=== PATIENT | female | born 1945 | race Two or more races ===

== ENCOUNTER 2024-01-14 17:08 | Emergency (ER) | payer MEDICARE, MEDICAID, SELFPAY ==
[2024-01-14] VITALS (7 sets, daily range): BP systolic 113–163; BP diastolic 63–97; PULSE 83–135; RESP 15–31; TEMP 37.4–38.4; O2SAT 92–98; BMI 23.0
--- NOTE | 2024-01-14 17:41 | EKG_ITS ---
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: : 1945 Requested By: Hannah Hickey ([facility]) [place] Order Number: [id number] Reading MD: Hannah Hickey ([facility]) Taylor Measurements Intervals [place] Rate: 136 P: 71 WI: 126 QRS: -86 QRSD: 83 T: 86 QT: 302 QTc: 455 Interpretive Statements SINUS TACHYCARDIA PATTERN CONSISTENT WITH PULMONARY DISEASE LEFT ANTERIOR FASCICULAR BLOCK [QRS AXIS <= -45, QR IN I, RS IN II] Compared to ECG 06/21/2023 15:59:25 Sinus rhythm no longer present Indeterminate axis no longer present Myocardial infarct finding no longer present /store/S0/[id number]/ecg/[id number].pdf
--- NOTE | 2024-01-14 17:41 | PD.EDRME ---
Rapid Medical Screening Exam RME Arrival date/time: 01/14/24 17:74 78-year-old female Chronically ill patient here accompanied with son for complaints of worsening buttocks wound. History of CVA patient is currently bedridden. I have greeted and performed a focused initial assessment of this patient. Initial appropriate labs ordered at this time. A comprehensive ED assessment and evaluation of the patient and analysis of all test and completion of medical decision making process will be conducted by additional ED provider. Chief Complaint: Back Pain/Injury Time Seen by Provider: 01/14/24 17:41 Vital signs: Vital Signs Temperature 99.4 F 01/14/24 17:41 Pulse Rate 135 H 01/14/24 17:41 Respiratory Rate 19 01/14/24 17:41 Blood Pressure 163/97 H 01/14/24 17:41 Pulse Oximetry (%) 98 01/14/24 17:41 Oxygen Delivery Method Room Air 01/14/24 17:41
[2024-01-14 18:12] LABS: Lactate (Lactic Acid) 2.1 mMol/L (0.4-2.0)
[2024-01-14 18:32] LABS: Basophils # (Auto) 0.1 Thou/mm3 (0.0-0.2); Basophils % (Auto) 0 % (0-2.5); Eosinophils # (Auto) 0.1 Thou/mm3 (0.0-0.5); Eosinophils % (Auto) 0 % (0-10); Hematocrit 39.6 % (36.0-46.0); Hemoglobin 12.9 g/dL (12.0-16.0); Immature Granulocytes % (Auto) 0 % (0-0); Immature Granulocytes Auto 0.06 Thou/mm3 (0.00-0.00); Lymphocytes # (Auto) 1.7 Thou/mm3 (1.0-4.8); Lymphocytes % (Auto) 11 % (10-50); Mean Corpuscular HGB Conc 32.6 g/dl (31.0-37.0); Mean Corpuscular Volume 86 fL (80-100); Monocytes # (Auto) 1.3 Thou/mm3 (0.0-0.8); Monocytes % (Auto) 8 % (0-12); Neutrophils # (Auto) 13.2 Thou/mm3 (1.8-7.7); Neutrophils % (Auto) 81 % (37-80); Nucleated Red Blood Cell % 0 /100 WBC (0); Platelet Count 329 Thou/mm3 (140-440); RDW Standard Deviation 48.8 fL (36.4-46.3); White Blood Count 16.4 Thou/mm3 (3.6-11.0)
[2024-01-14 18:34] LABS: INR 1.1 (0.9-1.3); Partial Thromboplastin Time 31.1 Seconds (22.0-36.0); Prothrombin Time 11.7 Seconds (9.0-12.2)
[2024-01-14 18:47] LABS: Alanine Aminotransferase 12 U/L (10-49); Albumin, Serum 4.2 gm/dL (3.4-4.8); Albumin/Globulin Ratio 1.1 (1.2-2.2); Alkaline Phosphatase 147 U/L (46-116); Anion Gap 8 (7-16); Aspartate Amino Transferase 19 U/L (0-34); BUN/Creatinine Ratio 25 Ratio (12-20); Bilirubin,Total 1.1 mg/dL (0.3-1.2); Blood Urea Nitrogen 15 mg/dL (9-23); Calcium 9.7 mg/dL (8.3-10.6); Calcium (Corrected) 9.7 mg/dL (8.5-10.1); Carbon Dioxide 24.7 mMol/L (20.0-31.0); Chloride 101 mMol/L (98-107); Creatinine (Component) 0.6 mg/dL (0.6-1.3); Glucose 138 mg/dL (74-106); Osmolality,Calculated 271 (275-295); Potassium 3.4 mMol/L (3.4-5.1); Procalcitonin 0.16 ng/ml (0.0-0.49); Sodium 134 mMol/L (136-145); Total Protein 8.2 gm/dL (5.7-8.2); Troponin I < 0.020 ng/mL (0.0-0.045); eGFR > 60 See Note
[2024-01-14 21:08] LABS: Reflex Lactate? Y
--- NOTE | 2024-01-14 21:21 | EDNOTE_ITS ---
ED Back Injury Pain RME/HPI General Chief Complaint: Back Pain/Injury Stated Complaint: Bed sore, pt is bed bound x 3 days Time Seen by Provider: 01/14/24 17:41 Source: patient and family Arrival date/time: 01/14/24 17:08 Mode of arrival: ambulatory Limitations: no limitations RME / HPI RME / HPI Narrative: 01/14/24 17:74 78-year-old female Chronically ill patient here accompanied with son for complaints of worsening buttocks wound. History of CVA patient is currently bedridden. I have greeted and performed a focused initial assessment of this patient. Ini tial appropriate labs ordered at this time. A comprehensive ED assessment and evaluation of the patient and analysis of all test and completion of medical decision making process will be conducted by additional ED provider. --- DR. YAO MAIN ED EVALUATION: 78-year-old female who presents to the emergency department for a chief complaint of worsening wounds to her buttocks. Patient's son states the patient has been developing worsening bed sores for the last few days. Patient is bedridden. He denies any fever, chills, vomiting or any other associated symptoms. No known allergies. PMHx includes rheumatoid arthritis with significant right upper extremity deformity, essential hypertension, unclear compliance with medications, hyperlipidemia, and depression. Social history includes active smoker with more than 48-kdkn-erog smoking. Related Data Home Medications ?Medication ?Instructions ?Recorded ?Confirmed venlafaxine 75 mg capsule,extended 75 mg PO DAILY 06/23/23 06/23/23 release 24 hr Allergies Allergy/AdvReac Type Severity Reaction Status Date / Time No Known Allergies Allergy Verified 06/21/23 16:17 Review of Systems Review of Systems Systems Reviewed: All systems reviewed, normal except as documented Past Medical History Past Medical History CARDIAC: Positive Hypercholesterolemia and Hypertension; Negative Congestive Heart Failure RESPIRATORY: Negative Chronic Obstructive Pulmonary Disease (COPD) GENITOURINARY: Negative Renal Disease MUSCULOSKELETAL: Positive Rheumatoid Arthritis ENDOCRINE: Negative Diabetes Mellitus Type 1 or Diabetes Mellitus Type 2 PSYCHO/SOCIAL: Positive Depression Family History FAMILY HISTORY: Positive Family Cardiac Disorders Social History SMOKING STATUS: Former smoker SUBSTANCE USE: does not use ED Exam Narrative Physical exam: Patient appears cachectic General Limitations: Present no limitations General appearance: Present alert Head Head exam: Present atraumatic, normocephalic and normal inspection Eye Eye exam: Present normal appearance and EOMI; Absent scleral icterus ENT ENT exam: Present normal exam and normal oropharynx Neck Neck exam: Present normal inspection and full ROM Chest Chest inspection: Present normal inspection and symmetric chest wall rise Respiratory Respiratory exam: Present normal lung sounds bilaterally Cardiovascular Cardiovascular exam: Present regular rate, normal rhythm, normal heart sounds and systolic murmur (3/6 blowing murmur) Abdominal Exam Abdominal exam: Present normal bowel sounds Extremities Exam Extremities exam: Present other (decreased capillary refill and skin turgor; RLE and right hand/wrist are contracted) Back Exam Back exam: Present normal inspection and full ROM Neurological Exam Neurological exam: Present alert, oriented X3 and CN II-XII intact Psychiatric Psychiatric exam: Present normal affect and normal mood; Absent depressed Skin Skin exam: Present warm, dry, normal color and other (10x4 cm open wound on the coccyx, no crepitus or redness, nontender) Course Course Course Narrative: IV fluids are given. Son request to see long term care social worker to discuss wound care consult for Coccyx open wound. 0600: Care signed out to the next oncoming provider. Past medical, surgical, social and family history reviewed. Vitals and home medications reviewed. Results and treatment plan discussed. They will assume the care of the patient at this time and will follow the patient, pending long term care social worker consultation for wound care.. Quality Measures none Orders Category Date Time Status EKG (ED ONLY) *Do not use* NOW Care 01/14/24 17:41 Completed EKG (ED Only) Stat Exams 01/14/24 17:41 Draft Blood Culture (Lab) Stat Lab 01/14/24 18:04 Received CBC Stat Lab 01/14/24 18:02 Completed Comprehensive Metabolic Panel Stat Lab 01/14/24 18:02 Completed Lactate (Lactic Acid) Stat Lab 01/14/24 18:02 Completed Lactic Acid, 3 HR Stat Lab 01/14/24 21:41 Completed Magnesium Stat Lab 01/14/24 18:02 Completed Partial Thromboplastin Time Stat Lab 01/14/24 18:02 Completed Procalcitonin Stat Lab 01/14/24 18:02 Completed Prothrombin Time with INR Stat Lab 01/14/24 18:02 Completed Troponin I Stat Lab 01/14/24 18:02 Completed Vital Signs Vital signs: Vital Signs Temperature 99.4 F 11/14/24 17:41 Pulse Rate 135 H 01/14/24 17:41 Respiratory Rate 19 01/14/24 17:41 Blood Pressure 163/97 H 01/14/24 17:41 Pulse Oximetry (%) 98 01/14/24 17:41 Oxygen Delivery Method Room Air 01/14/24 17:41 Back Pain / Injury MDM Narrative MDM Narrative:: ? Scribe Attestation: I, Ludivina Scherer, am scribing for and in the presence of Dr. Cain. Provider Notation: Although this document has been carefully reviewed, there may still be some phonetic and other typographical errors. These errors are purely grammatical due to imperfections in the software program and should not be construed in any way to compromise the substance of the patient's medical care during this visit. Patient data External records reviewed:: [facility] previous records Clinical information provided by:: family Social determinants that could affect healthcare access:: none Patient has the following chronic illnesses:: rheumatoid arthritis with significant right upper extremity deformity and walks with help of walker, essential hypertension, unclear compliance with medications, hyperlipidemia, depression, active smoker with more than 75-[id number]-qzjp smoking How is presenting disease/condition affected by chronic disease/condition?: uneffected by Evaluation data The following diagnostics were reviewed and interpreted by me:: lab results and EKG tracing(s) Lab and/or radiology exams considered but not ordered:: None Interpretation Summary: WBC count is elevated at 16.4, Lactic Acid is slightly elevated at 2.1, Procalcitonin is normal, troponin is normal, according to my interpretation. EKG done at 1754, sinus tachycardia, rate of 136, left inferior fascicular bloc k, QTc: 382, no STEMI, according to my interpretation. Medications / Prescriptions Medications or Prescriptions considered but not ordered:: None Medication administrations:: As above, if any Consultations Consultation(s) initiated? (list below): No Diagnosis Differential diagnosis back pain/injury: other (cellulitis, osteomyelitis, electrolyte abnormality, dehydration) Most likely diagnosis given after review of the tests above:: see below Admission Indicated Admission indicated?: not indicated Admission Request Was there a request for admission?: No Disposition Plan Disposition Plan: other (specify) (Signed out to the next oncoming provider at 0600 pending long term care social worker consultation for wound referral.) Discharge Plan Plan Patient Disposition: HOME (Self Care) Patient condition on transfer: Stable Prescriptions/Referrals Prescriptions/Med Rec: No Action venlafaxine 75 mg capsule,extended release 24hr 75 mg PO DAILY Referrals: No Primary/Family,Physician [Primary Care Provider] - In 1 week Problem List Clinical Impression: [place], Acute dehydration Patient/Caregiver Discharge Instructions Education Materials: Wound Care, What Are Pressure Sores?, ED Dehydration (Adult) Print Language: Ethiopian Stand Alone Forms: Jo Award Info., Patient Portal Info Letter
[2024-01-14 21:53] LABS: Lactic Acid, 3 HR 1.6 mMol/L (0.4-2.0)
[2024-01-15] VITALS: BP 144/72; PULSE 93; RESP 26; O2SAT 97
[2024-01-15 06:00] VITALS: BP 113/64; PULSE 76; RESP 17; TEMP 37.2; O2SAT 97
--- NOTE | 2024-01-15 07:03 | PC.CC ---
Heather WILL was consulted for referral to the wound clinic. ASW faxed referral, will be calling at [phone] to schedule appointment for the patient.
--- NOTE | 2024-01-15 07:21 | PC.CC ---
ASW, spoke to patient's son Neel who reports he wants a referral for [facility] for wound care. ASW will be submitting referral for home health.
[2024-01-15 07:52] VITALS: BP 113/64; PULSE 92; RESP 17; TEMP 37.3; O2SAT 97
--- NOTE | 2024-01-15 08:00 | PC.NURSE ---
pt seen and is resting . Pt has no movement ti right arm or leg. Per Pt's son, at bedside, pt does n ot move or attempt to feed or care for herself, she is total care at home.
--- NOTE | 2024-01-15 08:06 | PC.CC ---
ASW, informed Dr. Vaughan that Home Health Services has been established. ASW, spoke to patient's son Bridger Dewitt and provided home health company [facility] information. ASW to remain available.
--- NOTE | 2024-01-15 08:07 | PD.EDADDENDU ---
Emergency Room Addendum Addendum Narrative: The patient was signed out to me from Dr. 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 She told me that after the home health care referral success, the patient can be DC home with her family. 8 AM, I was told by the hospital social media specialist that the patient has been accepted for home health care and the patient can be discharged to family. Diagnosis: Decubitus ulcer, home health care referral Condition: Stable for DC home DC instruction: Home health care referral has been done. Please also follow-up with your medical doctor in the next couple days. Return to the nearest ER if any problem.
[2024-01-15 08:45] VITALS: BP 119/64; PULSE 93; RESP 20; TEMP 37.1; O2SAT 96
[2024-01-15 08:59] VITALS: BP 113/64; PULSE 89; RESP 18; O2SAT 95
== END 2024-01-15 08:59 | disposition home or self-care (01) ==
PROVIDERS: Nurse Practitioner Primary Care; Emergency Provider Emergency Medicine; PCP Nurse Practitioner
DX: L89.159 Pressure ulcer of sacral region, unspecified stage (principal); E86.0 Dehydration; R00.0 Tachycardia, unspecified; I44.4 Left anterior fascicular block; E78.00 Pure hypercholesterolemia, unspecified; I10 Essential (primary) hypertension; Z87.891 Personal history of nicotine dependence
CPT/HCPCS: 36415; 80053; 83605; 83735; 84145; 84484; 85025; 85610; 85730; 87040; 87077; 87186; 93005; 99283

== ENCOUNTER → 2024-03-01 | Outpatient (CLI) | payer MEDICARE, MEDICAID, SELFPAY ==
[2024-03-01 13:56] LABS: Collection Type, Urine Clean Catch
[2024-03-01 14:55] LABS: Bacteria,Urine 2+; Bilirubin,Urine Negative (Negative); Blood,Urine 3+ (Negative); Calcium Oxalate Crystals,Urine 3+; Color,Urine Yellow (Lt Yel-Yel); Glucose, Urine Negative (Negative); Ketones,Urine Negative (Negative); Leukocyte Esterase,Urine Positive (Negative); Nitrite,Urine Positive (Negative); PH,Urine 6.5 (5.0-7.0); Protein,Urine 2+ (Neg - Trace); RBC,Urine 238 /hpf (0-3); Specific Gravity,Urine 1.022 (1.001-1.035); Squamous Epithelial Cell,Urine 1 /hpf (0-5); Urobilinogen,Urine Negative mg/dL (0.0-1.0); WBC,Urine 1664 /hpf (0-5)
[2024-03-01 15:00] LABS: Clarity,Urine Hazy (Clear/Hazy); Culture Indicated,Urine Yes
== END | disposition home or self-care (01) ==
PROVIDERS: PCP Family Medicine; Referring Provider Nurse Practitioner; Visit Provider Nurse Practitioner
DX: R30.0 Dysuria (principal)
CPT/HCPCS: 81001; 87077; 87086; 87186

== ENCOUNTER → 2024-03-23 | Outpatient (CLI) | payer MEDICARE, MEDICAID, SELFPAY ==
[2024-03-23 14:13] LABS: Collection Type, Urine Clean Catch
[2024-03-23 15:42] LABS: Bilirubin,Urine Negative (Negative); Blood,Urine Negative (Negative); Budding Yeast,Urine Present; Clarity,Urine Turbid (Clear/Hazy); Color,Urine Yellow (Lt Yel-Yel); Glucose, Urine Negative (Negative); Ketones,Urine Negative (Negative); Leukocyte Esterase,Urine Positive (Negative); Nitrite,Urine Negative (Negative); Protein,Urine Trace (Neg - Trace); RBC,Urine 27 /hpf (0-3); Specific Gravity,Urine 1.023 (1.001-1.035); Squamous Epithelial Cell,Urine 1 /hpf (0-5); WBC,Urine 51 /hpf (0-5)
[2024-03-23 15:43] LABS: Culture Indicated,Urine Yes
== END | disposition home or self-care (01) ==
PROVIDERS: Referring Provider Nurse Practitioner; Visit Provider Nurse Practitioner
DX: N30.01 Acute cystitis with hematuria (principal)
CPT/HCPCS: 81001; 87086; 87106

== ENCOUNTER → 2024-04-29 | Outpatient (CLI) | payer MEDICARE, MEDICAID, SELFPAY ==
[2024-04-29 10:08] LABS: Basophils # (Auto) 0.1 Thou/mm3 (0.0-0.2); Basophils % (Auto) 1 % (0-2.5); Eosinophils # (Auto) 0.1 Thou/mm3 (0.0-0.5); Eosinophils % (Auto) 2 % (0-10); Hematocrit 33.3 % (36.0-46.0); Hemoglobin 10.3 g/dL (12.0-16.0); Immature Granulocytes % (Auto) 0 % (0-0); Immature Granulocytes Auto 0.01 Thou/mm3 (0.00-0.00); Lymphocytes # (Auto) 1.3 Thou/mm3 (1.0-4.8); Lymphocytes % (Auto) 23 % (10-50); Mean Corpuscular HGB Conc 30.9 g/dl (31.0-37.0); Mean Corpuscular Hemoglobin 24.6 pg (25.0-35.0); Mean Corpuscular Volume 80 fL (80-100); Monocytes # (Auto) 0.5 Thou/mm3 (0.0-0.8); Monocytes % (Auto) 10 % (0-12); Neutrophils # (Auto) 3.6 Thou/mm3 (1.8-7.7); Neutrophils % (Auto) 64 % (37-80); Nucleated Red Blood Cell % 0 /100 WBC (0); Platelet Count 235 Thou/mm3 (140-440); Red Blood Count 4.18 Miln/mm3 (4.00-5.20); White Blood Count 5.5 Thou/mm3 (3.6-11.0)
[2024-04-29 10:34] LABS: Alanine Aminotransferase 24 U/L (10-49); Albumin, Serum 3.3 gm/dL (3.4-4.8); Alkaline Phosphatase 134 U/L (46-116); Anion Gap 9 (7-16); Aspartate Amino Transferase 32 U/L (0-34); BUN/Creatinine Ratio 50 Ratio (12-20); Bilirubin,Total 0.5 mg/dL (0.3-1.2); Blood Urea Nitrogen 15 mg/dL (9-23); Calcium 9.1 mg/dL (8.3-10.6); Calcium (Corrected) 9.7 mg/dL (8.5-10.1); Carbon Dioxide 25.8 mMol/L (20.0-31.0); Cardiac Risk Estimate 2.7 RATIO (3.7-5.6); Chloride 107 mMol/L (98-107); Cholesterol 93 mg/dL (132-200); Creatinine (Component) 0.3 mg/dL (0.6-1.3); Globulin 3.3 gm/dL (2.3-3.5); Glucose 95 mg/dL (74-106); HDL Cholesterol 35 mg/dL (40-60); LDL Cholesterol,Calculated 45 mg/dL (0-130); Osmolality,Calculated 283 (275-295); Potassium 4.3 mMol/L (3.4-5.1); Sodium 142 mMol/L (136-145); Total Protein 6.6 gm/dL (5.7-8.2); Triglycerides 67 mg/dL (30-150); eGFR > 60 See Note
== END | disposition home or self-care (01) ==
LOC: SLDO 09:48
PROVIDERS: Referring Provider Family Medicine; Visit Provider Family Medicine
DX: N30.01 Acute cystitis with hematuria (principal); I10 Essential (primary) hypertension; E78.5 Hyperlipidemia, unspecified
CPT/HCPCS: 36415; 80053; 80061; 85025; 87077; 87086; 87186

== ENCOUNTER → 2024-06-24 | Outpatient (CLI) | payer MEDICARE, MEDICAID, SELFPAY | END | disposition home or self-care (01) | LOC: SLDO 15:13 | PROVIDERS: PCP Nurse Practitioner; Referring Provider Nurse Practitioner; Visit Provider Nurse Practitioner | DX: N30.01 Acute cystitis with hematuria (principal) | CPT/HCPCS: 87077; 87086; 87186 ==

== ENCOUNTER 2024-07-20 11:33 | Inpatient (IN) | payer MEDICARE, MEDICAID, SELFPAY ==
--- NOTE | 2024-07-20 | XR_ITS ---
Examinations: MRI Brain without intravenous contrast. MRA brain without intravenous contrast. MRA carotids without intravenous contrast 3-D vascular reconstructions Date and time of exam: July 20, 2024 1758 hours INDICATIONS: Stroke alert today, onset left-sided facial droop Technique: Multiple axial and sagittal images of the brain have been obtained MRA brain carotid images without contrast obtained, including 3-D postprocessing, vascular maximum intensity projection images Findings: The entire study is severely degraded by patient motion Ventricles are mildly enlarged Possible small foci of restricted diffusion in the left cerebellar hemisphere diffusion image 5 Extensive white matter change in the left occipital lobe and in general periventricular and in the white matter IMPRESSION: The entire study is severely degraded by patient motion Recommend repeating the study when the patient can cooperate to exclude acute infarcts especially in the left cerebellar hemisphere
--- NOTE | 2024-07-20 11:35 | EDNOTE_ITS ---
ED General RME/HPI General Chief complaint: Neuro Symptoms/Deficit Stated complaint: STROKE Time Seen by Provider: 07/20/24 11:38 Arrival date/time: 07/20/24 11:33 RME / HPI RME / HPI narrative: DR. LINK MAIN ED EVALUATION: 78 year old female with past medical history significant for CVA in 01/2024 presents to the Emergency Department [facility] from home with complaint of new onset of left sided facial droop 2 hours ago. Last well known time is 9 AM today. Family reported to EMS that patient usually responds and answers questions and today she was not. Related Data Home Medications ?Medication ?Instructions ?Recorded ?Confirmed venlafaxine 75 mg capsule,extended 75 mg PO DAILY 06/0106/23/23 release 24 hr Allergies Allergy/AdvReac Type Severity Reaction Status Date / Time No Known Allergies Allergy Verified 06/21/23 16:17 Review of Systems Review of Systems ROS Unobtainable: unobtainable due to mental status Past Medical History Past Medical History CARDIAC: Positive Hypercholesterolemia and Hypertension MUSCULOSKELETAL: Positive Rheumatoid Arthritis PSYCHO/SOCIAL: Positive Depression Family History FAMILY HISTORY: Positive Family Cardiac Disorders Social History SMOKING STATUS: Former smoker SUBSTANCE USE: does not use ALCOHOL: Never ED Exam Narrative Physical exam: The patient arrived and seen in the ambulance bay and a stroke alert was called soon after arrival due to new onset of and decreased verbal ability. Patient is somewhat contracted smells of tobacco and unable to answer questions or engage. Physical Exam: General: The vital signs were reviewed. Patient has contractures the patient is no n-toxic, in no apparent distress and appears healthy with a patent airway, no respiratory distress and has no apparent circulatory problems. Head & Scalp: Normocephalic, atraumatic. Face: Left facial droop appears normal and is without lesions, deformity. Ears: Left external pinna appears normal. Right external pinna appears normal. Eyes: The sclera is anicteric. No obvious photophobia. The Left and Right Orbit/Lid/Conjunctiva appears normal without swelling, discoloration or injection. Nose: The nose is without deformity, discharge or tenderness; Throat: Appears normal. The mucous membranes are pink and moist without exudates, redness or mass seen. The tongue appears normal. Neck: The neck is supple and no apparent mass or adenopathy. Chest: The chest wall is normal in size and symmetry and has no chest wall tenderness or crepitus. The patient displays normal ventilator effort without retractions, accessory muscle use and has adequate air movement bilaterally with no wheezes and no rales. Cardiovascular: Regular rate and rhythm; No murmurs, rubs, or gallops; Gastrointestinal: The abdomen appears normal. No obvious hernias or mass. The abdomen is soft and benign, non-distended, with no pain, no guarding and no rebound tenderness. Bowel sounds are present and normal sounding. No CVA tenderness. Genitourinary: Back/Spine: Normal inspection Extremities/Musculoskeletal/lymphatic: The contracted extremities not able to follow commands unable to determine if there is any focal extremity weakness Skin: The skin is warm, dry and intact. No rashes. No petechia. No purpura. No abnormal bruising. The color is appropriate with no cyanosis. Mental status/Psychiatric: Mental status is evidently not as engaging as baseline. Neurological: The patient is awake, alert, interactive, gives eye contact not verbal left face is drooping. The patient follows commands and answers historical question with no impairment. There is no visual disturbance apparent. The pupils are equal and reactive bilaterally with normal eye movements and no diplopia The bilateral upper and lower extremities are contracted and unable to display range of motion testing. The gait, station and balance are not tested due to acuity. Course Quality Measures none Orders Category Date Time Status Admit to Inpatient Status Routine Admission 07/20/24 17:27 Active Patient Condition Routine Admission 07/20/24 17:27 Ordered Bedside Blood Glucose NOW Care 07/20/24 11:38 Active Bedside COVID-19 Antigen Test NOW Care 07/20/24 17:28 Active On Site Soil Evaluator NOW Care 07/20/24 11:38 Active Continuous Pulse Oximetry NOW Care 07/20/24 11:38 Completed EKG (ED ONLY) *Do not use* NOW Care 07/20/24 11:38 Completed In and Out Catheter NEEDED Care 07/20/24 11:38 Active Insert IV NOW Care 07/20/24 11:38 Active MRI Screening NOW Care 07/20/24 15:21 Active NIH Stroke Scale now Care 07/20/24 11:38 Active NPO NOW Care 07/20/24 11:38 Active Neuro Check Q15MIN Care 07/20/24 11:38 Active Notify provider NEEDED Care 07/20/24 17:27 Active Nurse Swallow Screen x1 Care 07/20/24 11:[address] angio stroke protocol Stat Exams 07/20/24 11:[address] stroke protocol Stat Exams 07/20/24 11:38 Completed EKG (ED Only) Stat Exams 07/20/24 11:38 Draft MR head/brain wo con Stat Exams 07/20/24 Ordered XR chest 1V portable Stat Exams 07/20/24 11:38 Completed B-Type Natriuretic Peptide Stat Lab 07/20/24 11:36 Completed Blood Culture (Lab) Stat Lab 07/20/24 12:54 Received CBC Stat Lab 07/20/24 11:36 Completed Comprehensive Metabolic Panel Stat Lab 07/20/24 11:36 Completed Drug Screen,Urine Stat Lab 07/20/24 14:52 Completed HCG Titer if Positive Stat Lab 07/20/24 11:36 Completed Lactate (Lactic Acid) Stat Lab 07/20/24 12:54 Completed Magnesium Stat Lab 07/20/24 11:36 Completed Partial Thromboplastin Time Stat Lab 07/20/24 11:36 Completed Prothrombin Time with INR Stat Lab 07/20/24 11:36 Completed Troponin I Stat Lab 07/20/24 11:36 Completed Urinalysis Stat Lab 07/20/24 14:52 Completed Urine Culture Stat Lab 07/20/24 14:52 Received Venous Blood Gas Stat Lab 07/20/24 12:54 Completed Azithromycin Inj [Zithromax Inj] 500 mg Med 07/21/24 09:00 Pending Sodium Chloride 0.9% 250 ml [Ns] 250 ml IV QDAY Azithromycin Inj [Zithromax Inj] 500 mg Med 07/20/24 17:15 Active Sodium Chloride 0.9% 250 ml [Ns] 250 ml IV X1 Clopidogrel [Plavix] Med 07/20/24 12:19 Discontinued 300 mg PO X1 ONE Ondansetron Inj [Zofran Inj] Med 07/20/24 11:38 Active 4 mg IV Q4HR PRN cefTRIAXone/D5w 1gm IV premix [Rocephin/D5w 1gm IV Med 07/20/24 17:08 Discontinued premix] 1 gm in 50 ml IV X1 Code Status Routine Oth 07/20/24 17:27 Ordered Oxygen Delivery NOW RT 07/20/24 11:38 Active Vital Signs Vital signs: Vital Signs Pulse Rate 123 H 07/20/24 11:38 Respiratory Rate 18 07/20/24 11:38 Critical Care Time Critical Care Time Critical Care Time: Yes Total Critical Care Time (min.): 60 Attestation: The high probability of sudden, clinically significant deterioration in the patient?s condition required the highest level of my preparedness to intervene urgently. The services I provided to this patient were to treat and/or prevent clinically significant deterioration. Services included the following: chart data review, reviewing nursing notes and/or old charts, documentation time, moving consultant collaboration regarding findings and treatment options, medication orders and management, direct patient care, vital sign assessments and ordering, interpreting and reviewing diagnostic studies and lab tests. Aggregate critical care time includes only time during which I was engaged in work directly related to the patient?s care, as described above, whether at bedside or elsewhere in the Emergency Department. It did not include time spent performing other reported procedures or the services of residents, students, nurses or physician assistants. Discharge Plan Plan Patient Disposition: Admit Acute Care w/in Hospital Discharge Disposition comment: Hospitalist admit Dr. Guidry consult Prescriptions/Referrals Prescriptions/Med Rec: No Action venlafaxine 75 mg capsule,extended release 24hr 75 mg PO DAILY Referrals: Marci Fernandes FNP [Primary Care Provider] - In 1 week Problem List Clinical Impression: Cerebrovascular accident, Urinary tract infection, Pneumonia, Acute respiratory alkalosis Patient/Caregiver Discharge Instructions Print Language: Korean Stand Alone Forms: Jo Award Info., Patient Portal Info Letter MDM Narrative [facility] hospital course: I, Ekaterina Montes am scribing for and in the presence of Dr. Link. Stroke alert was called the soon after arrival to for obvious new onset of facial droop in a debilitated patient baseline. Patient evidently is minimally verbal but clearly had a new onset of swallowing difficulty and facial droop and previous stroke. CT and CTA revealed no acute LVO or acute infarct that was visible. There are plenty of stenotic areas of her brain on the CTA. Medical workup revealed white count of 10.8 hemoglobin 9.5 and microcytic indices with MCV of 75. pH was 7.63P pCO2 was 25 and a venous blood gas. Consistent with a respiratory alkalosis lactic acid was 1.2. BUN 14 creatinine is 0.3 urinalysis came back with 77 red cells and 42 white cells and she does have chronic pyuria and she is on nitrofurantoin. Urine drug screen came back negative. She is not . The chest x-ray reveals a questionable opacity in the left base which they are calling pneumonia although wonders if there is some eventration of the diaphragm and/or the. Stomach. Dr. Guidry neurologist was called and she will be consulting for the stroke alert MRI was ordered and is pending as of 1708 hrs. Hospitalist was contacted and they will be admitting. The UA came back in a delayed fashion and will start some antibiotics which will cover both the pneumonia if present and the pyuria urine culture is with the Rocephin and azithromycin. Clinical Information Provided by EMS and family Medical Records Reviewed EMS Meds/Rx Considered, not Ordered None Labs/Rad/Tests considered, not Ordered None Chronic Illness/Social Conditions Add or document further as needed: CVA in 01/2024. Other PMHx includes hypertension and hypercholesterolemia. EKG Interpretation EKG #1: Date/time of EK07/20/24 1245 pm EKG interpretation: Interpreted by me: sinus tachycardia, rate 122, no STEMI Lab Interpretation Labs: see narrative above Imaging Imaging interpretation: see narrative above Radiology reports / interpretation(s): Procedure(s): CT angio stroke protocol Accession Number(s): [id number] cc: Syed Link MD; Anuel Cooper MD~ Examination: CTA carotids with intravenous contrast CTA brain, head with intravenous contrast. 2-D sagittal, coronal reconstructions. 3-D reconstructions. Exam date and time: July 20, 2024 11:44 AM INDICATIONS: Stroke alert, onset left-sided facial droop today CTDI: vol (mGy) 9.85 DLP: (mGycm) 360 Technique: Multiple CTA axial brain, head carotid images post intravenous contrast injection 75 cc, Isovue-370. 2-D sagittal, coronal reconstructions. 3-D reconstructions, 3-D post processing including vascular maximum intensity projection images. Low dose protocols were performed. One or more of the following dose reduction techniques were used; automated exposure control, adjustment of the mA and/or KV according to patient size, use of iterative reconstruction technique. Findings: Multiple bilateral thyroid nodules No significant common carotid carotid bifurcation or internal carotid artery stenoses Dominant left vertebral artery with no critical stenoses No cerebral large vessel arterial occlusions Suspicious for 80% stenosis distal M1 segment right middle cerebral artery 40% stenosis proximal left middle cerebral artery Multiple areas of stenosis in the left posterior cerebral artery, up to 40% stenosis IMPRESSION: No significant neck arterial stenoses Suspicious for 80% stenosis distal M1 segment right middle cerebral artery 40% stenosis proximal M1 segment left middle cerebral artery Multiple areas of stenosis left posterior cerebral artery at the 40% No cerebral large vessel occlusions Dictated By: Anuel Cooper MD Procedure(s): CT stroke protocol Accession Number(s): [id number] cc: Syed Link MD; Anuel Cooper MD~ Examination: CT brain head without contrast. 2-D sagittal coronal reconstructions Date and time of exam:July 20, 2024 1140 hours INDICATIONS: Stroke alert, onset left-sided facial droop today COMPARISON: June 21, 2023 CTDI: vol (mGy):42.7 DLP: (mGycm):825 Technique: Multiple CT axial sections of the brain have been obtained, 5 mm slice thickness. Contrast has not been administered. 2-D sagittal, coronal reconstructions have been obtained Low dose protocols were performed. One or more of the following dose reduction techniques were used; automated exposure control, adjustment of the mA and/or KV according to patient size, use of iterative reconstruction technique. Findings: No significant ventricular enlargement. Acute appearing infarct in the left occipital lobe Intra-axial or extra-axial hemorrhage density is not seen. No mass effect or midline shift Basal cisterns are not remarkable. Fourth ventricle is midline. Cranial vault intact. Impression: Negative for acute hemorrhage, mass effect or midline shift Acute appearing infarct left occipital lobe Dictated By: Anuel Cooper MD Procedure(s): XR chest 1V portable Accession Number(s): [id number] cc: Syed Link MD; Anuel Cooper MD~ Examination: AP chest single view Technique one AP portable semiupright chest single view Date and time: July 20, 2024 1233 hours Comparison June 18, 2022 INDICATIONS: Stroke alert, onset chest pain today. FINDINGS: Opacity left base retrocardiac Right lung clear Normal heart size IMPRESSION: Pneumonia left base, consider aspiration pneumonia Dictated By: Anuel Cooper MD Medication Administration(s) Medication Administration History Azithromycin 500 mg/ Sodium (Chloride) 250 mls @ 250 mls/hr IV QDAY ALISON Stop: 07/28/24 08:59 Azithromycin 500 mg/ Sodium (Chloride) 250 mls @ 250 mls/hr IV X1 ONE Stop: 07/20/24 18:14 Ondansetron HCl (Ondansetron Inj 2 Mg/Ml Inj 2 Ml) 4 mg IV Q4HR PRN PRN Reason: NAUSEA OR VOMITING Stop: 08/19/24 11:37 Discontinued Medications Clopidogrel Bisulfate (Clopidogrel Bisulfate 75 Mg Tablet) 300 mg PO X1 ONE Stop: 07/20/24 12:20 Last Admin: 07/20/24 14:51 Dose: Not Given Documented By: ER Non-Admin Reason: NPO Ceftriaxone Sodium/Dextrose (Rocephin/D5w 1gm Iv Premix) 1 gm in 50 mls @ 100 mls/hr IV X1 ONE Stop: 07/20/24 17:37 Consultations/Discussions re: Management Consult #1: Date/time: 07/20/24 4:05 pm Physician, specialty, service, details: Discussed test HPI, PMHx, lab, radiology results and/or management with Dr. Guidry. Will consult an admission to the hospitalist. Consult #2: Date/time: 07/20/24 4:15 pm Physician, specialty, service, details: Discussed test HPI, PMHx, lab, radiology results and/or management with resident Dr. Quintanilla working with the hospitalist. Will admit for further evaluation and management. Accepts patient for admission. Diagnosis Differential diagnosis: TIA, CVA, brain bleed Most likely dx, and/or detailed dx discussion: CVA UTI Pneumonia Acute respiratory alkalosis Dispositon Disposition: Admit
[2024-07-20 11:38] VITALS: PULSE 123; PULSE 128; RESP 16; RESP 18; RESP 95; O2SAT 99; BMI 17.4
--- NOTE | 2024-07-20 11:38 | EKG_ITS ---
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
--- NOTE | 2024-07-20 11:38 | XR_ITS ---
Examination: CT brain head without contrast. 2-D sagittal coronal reconstructions Date and time of exam:July 20, 2024 1140 hours INDICATIONS: Stroke alert, onset left-sided facial droop today COMPARISON: June 21, 2023 CTDI: vol (mGy):42.7 DLP: (mGycm):825 Technique: Multiple CT axial sections of the brain have been obtained, 5 mm slice thickness. Contrast has not been administered. 2-D sagittal, coronal reconstructions have been obtained Low dose protocols were performed. One or more of the following dose reduction techniques were used; automated exposure control, adjustment of the mA and/or KV according to patient size, use of iterative reconstruction technique. Findings: No significant ventricular enlargement. Acute appearing infarct in the left occipital lobe Intra-axial or extra-axial hemorrhage density is not seen. No mass effect or midline shift Basal cisterns are not remarkable. Fourth ventricle is midline. Cranial vault intact. Impression: Negative for acute hemorrhage, mass effect or midline shift Acute appearing infarct left occipital lobe
--- NOTE | 2024-07-20 11:38 | XR_ITS ---
Examination: CTA carotids with intravenous contrast CTA brain, head with intravenous contrast. 2-D sagittal, coronal reconstructions. 3-D reconstructions. Exam date and time: July 20, 2024 11:44 AM INDICATIONS: Stroke alert, onset left-sided facial droop today CTDI: vol (mGy) 9.85 DLP: (mGycm) 360 Technique: Multiple CTA axial brain, head carotid images post intravenous contrast injection 75 cc, Isovue-370. 2-D sagittal, coronal reconstructions. 3-D reconstructions, 3-D post processing including vascular maximum intensity projection images. Low dose protocols were performed. One or more of the following dose reduction techniques were used; automated exposure control, adjustment of the mA and/or KV according to patient size, use of iterative reconstruction technique. Findings: Multiple bilateral thyroid nodules No significant common carotid carotid bifurcation or internal carotid artery stenoses Dominant left vertebral artery with no critical stenoses No cerebral large vessel arterial occlusions Suspicious for 80% stenosis distal M1 segment right middle cerebral artery 40% stenosis proximal left middle cerebral artery Multiple areas of stenosis in the left posterior cerebral artery, up to 40% stenosis IMPRESSION: No significant neck arterial stenoses Suspicious for 80% stenosis distal M1 segment right middle cerebral artery 40% stenosis proximal M1 segment left middle cerebral artery Multiple areas of stenosis left posterior cerebral artery at the 40% No cerebral large vessel occlusions
--- NOTE | 2024-07-20 11:38 | XR_ITS ---
Examination: AP chest single view Technique one AP portable semiupright chest single view Date and time: July 20, 2024 1233 hours Comparison June 18, 2022 INDICATIONS: Stroke alert, onset chest pain today. FINDINGS: Opacity left base retrocardiac Right lung clear Normal heart size IMPRESSION: Pneumonia left base, consider aspiration pneumonia
[2024-07-20 11:40] VITALS: BP 138/83; PULSE 134; RESP 18; O2SAT 96
[2024-07-20 11:47] LABS: Basophils % (Auto) 0 % (0-2.5); Eosinophils % (Auto) 0 % (0-10); Hematocrit 31.7 % (36.0-46.0); Hemoglobin 9.5 g/dL (12.0-16.0); Immature Granulocytes % (Auto) 1 % (0-0); Immature Granulocytes Auto 0.06 Thou/mm3 (0.00-0.00); Lymphocytes # (Auto) 1.1 Thou/mm3 (1.0-4.8); Lymphocytes % (Auto) 10 % (10-50); Mean Corpuscular Hemoglobin 22.5 pg (25.0-35.0); Mean Corpuscular Volume 75 fL (80-100); Monocytes # (Auto) 1.2 Thou/mm3 (0.0-0.8); Monocytes % (Auto) 11 % (0-12); Neutrophils # (Auto) 8.4 Thou/mm3 (1.8-7.7); Neutrophils % (Auto) 78 % (37-80); Nucleated Red Blood Cell % 0 /100 WBC (0); Platelet Count 320 Thou/mm3 (140-440); RDW Standard Deviation 50.4 fL (36.4-46.3); Red Blood Count 4.23 Miln/mm3 (4.00-5.20); White Blood Count 10.8 Thou/mm3 (3.6-11.0)
[2024-07-20 12:03] LABS: INR 1.1 (0.9-1.3); Partial Thromboplastin Time 29.6 Seconds (22.0-36.0); Prothrombin Time 11.8 Seconds (9.0-12.2)
[2024-07-20 12:10] LABS: B-Type Natriuretic Peptide 148 pg/mL (0-100)
[2024-07-20 12:16] LABS: Alanine Aminotransferase 7 U/L (10-49); Albumin, Serum 2.7 gm/dL (3.4-4.8); Albumin/Globulin Ratio 0.7 (1.2-2.2); Alkaline Phosphatase 165 U/L (46-116); Anion Gap 10 (7-16); Aspartate Amino Transferase 31 U/L (0-34); BUN/Creatinine Ratio 47 Ratio (12-20); Bilirubin,Total 0.6 mg/dL (0.3-1.2); Blood Urea Nitrogen 14 mg/dL (9-23); Calcium 7.8 mg/dL (8.3-10.6); Calcium (Corrected) 8.8 mg/dL (8.5-10.1); Carbon Dioxide 27.4 mMol/L (20.0-31.0); Chloride 108 mMol/L (98-107); Creatinine (Component) 0.3 mg/dL (0.6-1.3); Globulin 4.1 gm/dL (2.3-3.5); Glucose 124 mg/dL (74-106); Osmolality,Calculated 290 (275-295); Potassium 3.2 mMol/L (3.4-5.1); Sodium 145 mMol/L (136-145); Total Protein 6.8 gm/dL (5.7-8.2); Troponin I < 0.020 ng/mL (0.0-0.045); eGFR > 60 See Note
[2024-07-20 12:23] LABS: HCG Titer if Positive Negative
--- NOTE | 2024-07-20 12:23 | PD.TNEURO ---
Tele Neuro Consultation Consultation Date 07/20/24 Most Recent Vital Signs Last Vital Signs Pulse 134 H 07/20/24 11:40 Resp 18 07/20/24 11:40 BP 138/83 H 07/20/24 11:40 Pulse Ox 96 07/20/24 11:40 O2 Del Method Room Air 07/20/24 11:40 Laboratory-Coagulation Panel PT 11.8 Seconds (9.0-12.2) 07/20/24 11:36 INR 1.1 (0.9-1.3) 07/20/24 11:36 APTT 29.6 Seconds (22.0-36.0) 07/20/24 11:36 Consultation Narrative [facility] Tele[facility]urology Consult [facility] Patient Name: Kallie Dewitt Date of : 1945 Date of Service: 07/20/2024 11:22:58 Diagnosis: ? I63.89 - Cerebrovascular accident (CVA) due to other mechanism ([facility]) Impression: ? 78-year-old female history of stroke with residual right-sided weakness, hypertension, Ruiz catheter in place, chronic UTI, bedbound, bedsores who I am seeing as a stroke alert for nonverbal and left facial droop. Patient being seen for decreased responsiveness, left gaze preference, left facial droop. Last known well 7 AM this morning. Neuroexam showing patient able to say yes no responses, able to follow simple commands, right arm and leg paralysis which is baseline for her, left arm and leg weakness. CT head showing acute infarct in the left occipital lobe. Left temporal /occipital lobe encephalomalacia. CTA negative for large vessel occlusion, chronic bilateral MCA stenoses. At this time, differentials include stroke, infectious process, subclinical seizure. Would suggest obtaining MRI brain noncontrast, infectious/metabolic workup. May need to consider EEG if workup unrevealing and patient does not return back to baseline. Patient not a thrombolytic candidate with last known well 7 AM this morning Our recommendations are outlined below. Recommendations: ? Stroke/Telemetry Floor ? Neuro Checks (Q4) ? Bedside Swallow Eval ? DVT Prophylaxis ? Euglycemia and Avoid Hyperthermia (PRN Acetaminophen) ? metabolic, infectious work up ? Plavix 300 mg x1 ? continue asa 81 mg daily ? MRI brain non con ? Consider EEG if work up unrevealing Sign Out: ? Discussed with Emergency Department Provider Advanced Imaging: CTA Head and Neck Completed. LVO:No Patient is not a candidate for BEAR Metrics: Last Known Well: 07/20/2024 07:00:00 Dispatch Time: 07/20/2024 11:26:34 Arrival Time: 07/20/2024 11:30:08 Initial Response Time: 07/20/2024 11:27:08 Symptoms: L face droop. . Initial patient interaction: 07/20/2024 11:31:34 NIHSS Assessment Completed: 07/20/2024 11:31:35 Patient is not a candidate for Thrombolytic. Thrombolytic Medical Decision: 07/20/2024 11:31:36 Patient was not deemed candidate for Thrombolytic because of following reasons: LKW outside 4.[address] Head: I personally reviewed all the CT images that were available to me and it showed: acute infarct in L occipital lobe Primary Provider Notified of Diagnostic Impression and Management Plan on: 07/20/2024 12:15:44 History of Present Illness: Patient is a 78 year old Female. Patient was brought by EMS for symptoms of L face droop. . 78-year-old female history of stroke with residual right-sided weakness, hypertension, Ruiz catheter in place, chronic UTI, bedbound, bedsores who I am seeing as a stroke alert for nonverbal and left facial droop. Patient is accompanied with son who provides history. He states that this morning he last saw her well at 7 AM, he provides care for her turning her, feeding her. When he came back at 9:30 AM he saw that she was not eating as much and not talking as much and felt like something was wrong. He noticed that her eyes were looking more towards the left. She does have baseline right-sided paralysis from previous stroke. She takes aspirin 81 daily. She is a former smoker. Patient with decreased responsiveness but able to follow simple commands of holding up her left arm briefly, left leg movement,. Son states the last time she had this, she did have a stroke however UTIs can also look like this as well for her. She is currently on 5-day course of antibiotic. Past Medical History: ? Stroke Medications: No Anticoagulant use No Antiplatelet use Reviewed EMR for current medications Allergies: Reviewed Social History: Drug Use: No Family History: There is no family history of premature cerebrovascular disease pertinent to this consultation ROS : 14 Points Review of Systems was performed and was negative except mentioned in HPI. Past Surgical History: There Is No Surgical History Contributory To Today?s Visit Examination: BP(147/86), Pulse(128), 1A: Level of Consciousness - Alert; keenly responsive + 0 1B: Ask Month and Age - Could Not Answer Either Question Correctly + 2 1C: Blink Eyes & Squeeze Hands - Performs Both Tasks + 0 2: Test Horizontal Extraocular Movements - Partial Gaze Palsy: Corrects with Oculocephalic Reflex + 1 3: Test Visual Luciano - No Visual Loss + 0 4: Test Facial Palsy (Use Grimace if Obtunded) - Minor paralysis (flat nasolabial fold, smile asymmetry) + 1 5A: Test Left Arm Motor Drift - Some Effort Against [place] + 2 5B: Test Right Arm Motor Drift - No Movement + 4 6A: Test Left Leg Motor Drift - No Effort Against [place] + 3 6B: Test Right Leg Motor Drift - No Movement + 4 7: Test Limb Ataxia (FNF/Heel-Smith) - No Ataxia + 0 8: Test Sensation - Normal; No sensory loss + 0 9: Test Language/Aphasia - Normal; No aphasia + 0 10: Test Dysarthria - Severe Dysarthria: Unintelligble Slurring or Out of Proportion to Aphasia + 2 11: Test Extinction/Inattention - No abnormality + 0 NIHSS Score: 19 Pre-Morbid Modified [place] Scale: Unable to assess Spoke with : Dr Pagan This consult was conducted in real time using interactive audio and video technology. Patient was informed of the technology being used for this visit and agreed to proceed. Patient located in hospital and provider located at home/office setting. Patient is being evaluated for possible acute neurologic impairment and high probability of imminent or life-threatening deterioration. I spent total of 35 minutes providing care to this patient, including time for face to face visit via telemedicine, review of medical records, imaging studies and discussion of findings with providers, the patient and/or family. Dr Mason Reyna [facility] For Inpatient follow-up with [facility] physician please call [facility] at . As we are not an outpatient service for any post hospital discharge needs please contact the hospital for assistance. If you have any questions for the [facility] physicians or need to reconsult for clinical or diagnostic changes please contact us via [facility] at .
[2024-07-20 12:58] LABS: Lactate (Lactic Acid) 1.2 mMol/L (0.4-2.0)
[2024-07-20 13:03] LABS: Base Excess, Venous 6 (-3-3); O2 Saturation, Venous 101 % (96-97); PCO2, Venous 25 mmHg (36-56); PO2, Venous 194 mmHg (15-58); pH, Venous 7.63 (7.33-7.66)
[2024-07-20 15:00] VITALS: BP 130/80; PULSE 111; RESP 16; TEMP 37.2; O2SAT 97
[2024-07-20 15:17] LABS: Collection Type, Urine Catheter
[2024-07-20 15:30] LABS: Amphetamine/Methamp Scrn,U Negative (Negative); Barbiturate Screen,Urine Negative (Negative); Benzodiazepines Screen,Urine Negative (Negative); Benzoylecgonine Screen, Ur Negative (Negative); Fentanyl Screen,Urine Negative (Negative); Opiate Screen,Urine Negative (Negative); THC Screen,Urine Negative (Negative)
[2024-07-20 15:35] LABS: Bacteria,Urine 2+; Bilirubin,Urine Negative (Negative); Blood,Urine 3+ (Negative); Calcium Oxalate Crystals,Urine 1+; Color,Urine Yellow (Lt Yel-Yel); Glucose, Urine Negative (Negative); Hyaline Casts,Urine < 1 /hpf (0-1); Ketones,Urine Negative (Negative); Leukocyte Esterase,Urine Negative (Negative); Nitrite,Urine Negative (Negative); PH,Urine 6.5 (5.0-7.0); Protein,Urine 1+ (Neg - Trace); RBC,Urine 77 /hpf (0-3); Squamous Epithelial Cell,Urine 3 /hpf (0-5); WBC,Urine 42 /hpf (0-5)
[2024-07-20 15:49] LABS: Clarity,Urine Hazy (Clear/Hazy); Specific Gravity,Urine 1.015 (1.001-1.035)
[2024-07-20 16:00] VITALS: BP 112/70; PULSE 115; RESP 18; O2SAT 94
[2024-07-20] MEDS: cefTRIAXone/D5w 1gm IV premix 1 GM/50 ML BAG IV (17:55)
[2024-07-20] MEDS: AZITHROMYCIN INJ 500 MG in SODIUM CHLORIDE 0.9% 250 ML 250 ML 250 MG IV (17:56)
--- NOTE | 2024-07-20 18:14 | PD.RESHP ---
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 Patient's son is at bedside who reports that he decided to take her to the emergency room after he noticed that patient had stopped responding to her, was not eating and was less responsive to her. Reports that patient has had strokes in the past, including 2. He has said that she has been bedbound since the previous strokes. He also says that she has history of some mass in her heart that she was seen at [facility] for, however did not have any surgery. He says that the patient does not have a resident surgeon. He reports that patient is bedbound and that he takes care of all her adult daily living activities and that she lives with him. He says she takes her medicines as prescribed and needs to be on a pur?ed type of diet in which he helps her with. He also says that patient recently developed a bedsore in which she was getting treatment for by wound care. She also got a debridement, however he is unsure who did the debridement. No other complaints at this time ED course: Patient arrived to the ED with a blood pressure of 130/80, heart rate of 111, temperature of 99, respiratory of 16, saturating 97% on room air. She was worked up was found to have a white count of 10.8, hemoglobin 9.5, BUN/creatinine of 14 and 0.2 respectively, potassium of 3.2, sodium 143, glucose 142, magnesium 2.0. VBG showed pH of 7.63, pCO2 of 25. Head CT was done which showed acute appearing infarct in the left occipital lobe. CTA head neck showed 80% stenosis in distal M1 segment MCA, 40% stenosis in the left MCA and multiple other areas of stenoses, however no LVO. Teleneuro was consulted who gave the patient an NIHSS score of 19 and recommended admission for the patient for further workup. Medicine was consulted patient was admitted to the floors. PMHx: As above Surgeries: Debridement, ectopic Meds: Effexor XR 75 mg, Lipitor, Zoloft 25, aspirin Allergies: No known allergies Family Hx: Unsure of patient's family history Social Hx: Born and raised in [place], has never been a heavy drinker, has multiple kids, lives with son. Smoked about half a pack to a full pack for several years, quit last year. No history of oral or IV drug use Review of Systems Review of Systems Narrative Review of Systems: 12 point ROS is limited as patient is poor historian and unable to respond Exam Vital Signs Temp Pulse Resp BP Pulse Ox O2 Del Method 99.0 F 115 H 18 112/70 94 L Room Air 07/20/24 15:00 07/20/24 16:00 07/20/24 16:00 07/20/24 16:00 07/20/24 16:00 07/20/24 16:00 Narrative Exam General: AAOx2, in mild distress, anorexic, weak, frail, elderly woman HEENT: Dry mucous membranes, conjunctiva clear, limited exam on extraocular movements as patient is unable to cooperate PERRLA, sternal and clavicle bossing Cardiovascular: S1-S2, tachycardic, prominent heart sounds indicative of systolic murmur Pulmonary: CTAB bilat no cough, no wheezing GI: No tenderness to light or deep palpitation, no guarding, rigidity, rebound tenderness or distension : Bradshaw chronic Extremities: No presence of trace or pitting edema in lower extremities bilaterally, dorsalis pedis pulses +2 bilaterally, some venous stasis in lower extremities, prominence rheumatoid deformities in feet and hands appearing swan neck like Neuro: AAOx2, bedbound, pupils round and reactive to light, limited exam as patient is unable to cooperate, able to move her left hand slightly Psych: Unable to cooperate Results: Labs 07/20/24 11:36 07/20/24 11:36 Labs: Short CBC 07/20/24 Range/Units 11:36 WBC 10.8 (3.6-11.0) Thou/mm3 Hgb 9.5 L (12.0-16.0) g/dL Hct 31.7 L (36.0-46.0) % Plt Count 320 (140-440) Thou/mm3 BMP 07/20/24 11:36 Sodium 145 Potassium 3.2 L Chloride 108 H Carbon Dioxide 27.4 BUN 14 Creatinine 0.3 L Glucose 124 H Calcium 7.8 L Cardiac Enzymes 07/20/24 Range/Units 11:36 Troponin I < 0.020 (0.0-0.045) ng/mL Liver Function 07/20/24 Range/Units 11:36 Total Bilirubin 0.6 (0.3-1.2) mg/dL AST 31 (0-34) U/L ALT 7 L (10-49) U/L Alkaline Phosphatase 165 H (46-116) U/L Albumin 2.7 L (3.4-4.8) gm/dL Urine 07/20/24 Range/Units 14:52 Urine Color Yellow (Lt Yel-Yel) Urine Clarity Hazy (Clear/Hazy) Urine pH 6.5 (5.0-7.0) Ur Specific [place] 1.015 (1.001-1.035) Urine Protein 1+ A (Neg - Trace) Urine Glucose (UA) Negative (Negative) ABG Interpretation ABG results: 07/20/24 12:54 VBG pH 7.63 VBG pCO2 25 L VBG pO2 194 H VBG Base Excess 6 H Quality Measures Quality Measures none Advance care planning discussed with:: patient Medications Home Medications and Allergies Home Medications ?Medication ?Instructions ?Recorded ?Confirmed ?Type venlafaxine 75 mg capsule,extended 75 mg PO DAILY 06/23/23 06/23/23 History release 24 hr Allergies Allergy/AdvReac Type Severity Reaction Status Date / Time No Known Allergies Allergy Verified 06/21/23 16:17 Visit Medications Acetaminophen (Acetaminophen 325 Mg Tablet) 650 mg PO Q6H PRN PRN Reason: Fever >100 or pain 1-3 Stop: 08/19/24 18:01 Hydrocodone Bitart/Acetaminophen (Hydrocodone/Apap 5/325 Tablet) 1 tab PO Q6H PRN PRN Reason: PAIN SCALE 4-6 (Moderate Stop: 07/25/24 18:01 Aspirin (Aspirin Ec 81 Mg Tabec) 81 mg PO QDAY ALISON Stop: 08/20/24 08:59 Atorvastatin Calcium (Atorvastatin Calcium 20 Mg Tablet) 80 mg PO HS ALISON Stop: 08/19/24 20:59 Enoxaparin Sodium (Enoxaparin Sod Inj 40 Mg/0.4 Ml Syringe) 40 mg SC QDAY ALISON Stop: 08/04/24 08:59 Azithromycin 500 mg/ Sodium (Chloride) 250 mls @ 250 mls/hr IV QDAY ALISON Stop: 07/28/24 08:59 Azithromycin 500 mg/ Sodium (Chloride) 250 mls @ 250 mls/hr IV X1 ONE Stop: 07/20/24 18:14 Last Admin: 07/20/24 17:56 Dose: 250 mls/hr Sodium Chloride (Ns) 1,000 mls @ 75 mls/hr IV .[id number] ALISON Stop: 08/19/24 18:14 Ceftriaxone Sodium 1 gm/ (Sodium Chloride) 50 mls @ 100 mls/hr IV QDAY ALISON Stop: 07/28/24 08:59 Ondansetron HCl (Ondansetron Inj 2 Mg/Ml Inj 2 Ml) 4 mg IV Q4HR PRN PRN Reason: NAUSEA OR VOMITING Stop: 08/19/24 11:37 Potassium Chloride (Potassium Chloride 20 Meq Tabcr) 40 meq PO X1 ONE Stop: 07/20/24 18:12 Sertraline HCl (Sertraline Hcl 25 Mg Tablet) 25 mg PO QDAY [facility] Stop: 08/20/24 08:59 Venlafaxine HCl (Venlafaxine Xr 37.5 Mg Capcr) 75 mg PO HS [facility] Stop: 08/19/24 20:59 Discontinued Medications Clopidogrel Bisulfate (Clopidogrel Bisulfate 75 Mg Tablet) 300 mg PO X1 ONE Stop: 07/20/24 12:20 Last Admin: 07/20/24 14:51 Dose: Not Given Ceftriaxone Sodium/Dextrose (Rocephin/D5w 1gm Iv Premix) 1 gm in 50 mls @ 100 mls/hr IV X1 ONE Stop: 07/20/24 17:37 Last Admin: 07/20/24 17:55 Dose: 100 mls/hr Assessment & Plan Plan Assessment Kallie is a 78 y/o female with PMHx of previous CVAs (bedbound, R sided deficits), HTN, HLD, 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 #Acute CVA #History of previous strokes #Bedbound #? Hx of Atrial myxoma Head CT shows acute infarct on the left occipital lobe Previous MRI shows stroke in left basal ganglia and left frontal lobe Teleneuro NIHSS: 19 Head neck CTA shows 80% stenosis of distal M1 segment MCA, 40% stenosis of the left MCA, and multiple other areas of stenosis, no LVO Patient at this point is not communicative at this time, however patient is already on aspirin and high intensity statin at home Previous TTE and ROBI show mass that may be consistent with atrial myxoma, however patient has not had surgical correction or further consultation No PFO on last ROBI done in 2023 This could be a contributing factor to recurrent strokes Patient will need further workup as she has multiple risk factors for CVA (myxoma, stenoses etc) Plan: ? Neurology consulted, appreciate recs ? MR stroke protocol ? Speech therapy ? Will defer physical therapy as patient is bedbound ? Echo ? Neurochecks every 4 hours ? Head of bed elevation 30 degrees ? DVT prophylaxis ? Bedrest ? DAPT ? Lipitor 80 mg ? Cardiac stratification ? Ultrasound carotid duplex #Aspiration pneumonia #Sepsis rule out Chest x-ray shows possible infiltrate in the left lobe, however aspiration is typically with right lobe however can still happen Patient is at high risk for aspiration due to patient being bedbound Patient at this time does not meet sepsis criteria, no evidence of end organ damage Plan: ? Rocephin 1 g IV daily with Flagyl 500 mg IV every 8 hours ? MRSA ? Sputum ? Follow-up blood cultures #Hyperkalemia 3.2 Plan: ? Trend with CMP ? 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 Continue with Rocephin 1 g IV daily ? Urine culture #Sinus Tachycardia #Prolonged QTc #Hypertension #Hyperlipidemia Patient appears to be tachycardic at 112 Previous EKG shows QTc of 493 Plan: ? Holding blood pressure medicines as blood pressures soft at this point ? Resumed home Lipitor 80 mg at bedtime ? Continue telemetry ? Avoiding QTc prolonging agents #Decubitus ulcer Will further examine as this could be a source of infection Plan: ? Wound care #Microcytic anemia Hgb 9.5, MCV 75 Plan: ? Trend CBC ? Iron studies panel ? PBS ? Transfusion protocol hemoglobin below 7 ? Avoiding any NSAIDs ? Protonix 40 mg daily #History of depression I am concerned for resuming Zoloft and Effexor which are QT prolonging agents as patient currently has prolonged QTc (493) Plan: ? Will hold on resuming Effexor and Zoloft at this time ? Will order repeat EKG tomorrow before resuming #Health Maintenance Disposition: Telemetry DVT prophylaxis: Lovenox GI prophylaxis: None indicated at this time Diet: Pending nurse swallow screen CODE STATUS: DNR Patient seen and care discussed with my attending physician, Dr. Delio Duarte, PGY-1 Attending Provider Attestation/Addendum After examination of the patient and review of the clinical data I feel that this patient needs admission to the hospital for further treatment/evaluation. I have discussed and was present for the essential components of the history, physical examination, diagnosis, and treatment plan with the resident. I agree with the patient's care as documented by the resident and amended herein by me. Irwin Kebede, . Patient seen and evaluated in the ED the patient is a 78-year-old female with a significant past medical history of rheumatoid arthritis, does not follow with a shell maker lockstitch, HLD, HTN, depression, Bradshaw catheter and CVA with residual right-sided weakness, presented to the ED for lack of appetite, decreased responsiveness, and left facial droop which began earlier this morning, last known well approximately 7 AM. Patient was accompanied by her son who was at bedside, he is also her caregiver, she lives at home with him. In the ED, the patient was mildly tachycardic at a rate of 115, Tmax 99 degrees, SpO2 94% on room air. Significant labs include a hemoglobin of 9.5, baseline 12.9 in January 2024, potassium 3.2, other labs largely unremarkable. CT head was performed demonstrating a left occipital lobe infarct, no acute hemorrhage was seen. Chest x-ray demonstrated left base pneumonia, possible aspiration. Teleneurology did see the patient virtually, recommended usual stroke precautions to include neurochecks, swallow eval, DVT prophylaxis, aspirin and Plavix, MRI brain which is ordered. Patient subsequently admitted to telemetry for CVA workup and aspiration pneumonia likely secondary to anaerobic versus gram-negative bacteria. MRI brain is ordered and pending, stroke precautions in place, neurochecks in place, patient started on ceftriaxone and Flagyl for aspiration pneumonia, blood cultures and urine cultures were drawn in the ED, patient will be continued on aspirin and Plavix for stroke, wound care also ordered for pressure ulcers in her sacral region which are improving per her son. Patient also on IVF and electrolytes will be repleted as needed. Of note, the patient does have a chronic Brad[place] catheter which is in place and draining. Urine is dark however. Will continue to monitor closely while she is here Although this document has been carefully reviewed, there may still be some phonetic and other typographical errors. These errors are purely grammatical due to imperfections in the software program and should not be construed in any way to compromise the substance of the patient's medical care during this visit.
--- NOTE | 2024-07-20 18:22 | ESCONSULT_ITS ---
HPI Data of Consult Requesting Physician: Neto Kebede DO Admitting Provider: Neto Kebede DO Attending Provider: Neto Kebede DO Primary Care Provider: AMINATA Stapleton Consult Narrative Reason for consult: general weakness, decreased verbalization, increased left facial droop History of present illness: The patient is a 78 year old female with previous medical history of stroke in 2023 with residual right sided hemiparesis, left dacial droop, bedridden, hyperlipidemia, rheumatoid arthritis, depression, chronic Ruiz cathether placement, recurrent UTI who was brought to the ED on 07/20/24 after at approximately 8-9 AM her son, who is her caregiver noticed that she is weak, more prominent facial droop and decreased verbal response. In the ED BP was 138/83, HR 123, afebrile, saturating well on room air. WBC count 10.8, Hgb 9.5, PLT 320. INR 1.1, VBG showed pH 7.63, pCO2 25, pO2 194. NA 145, Potassium 3.2, creatinine 0.3, glucose 124, LA 1.2. CT head showed acute appearing infarct in the left occipital lobe. MRI head was degraded by motion, low suspition for acute stroke. Neurology was consulted for acute stroke rule out. cc:: cc: Neto Kebede DO Review of Systems Review of Systems ROS Unobtainable: unobtainable due to mental status Past Medical History Past Medical History CARDIAC: Positive Hypercholesterolemia and Hypertension MUSCULOSKELETAL: Positive Rheumatoid Arthritis PSYCHO/SOCIAL: Positive Depression Family History FAMILY HISTORY: Positive Family Cardiac Disorders Social History SMOKING STATUS: Former smoker SUBSTANCE USE: does not use ALCOHOL: Never Exam Vital Signs Temp Pulse Resp BP Pulse Ox O2 Del Method 99.0 F 115 H 18 112/70 94 L Room Air 07/20/24 15:00 07/20/24 16:00 07/20/24 16:00 07/20/24 16:00 07/20/24 16:00 07/20/24 16:00 Narrative Exam Gen: Well-developed and well-nourished. HEENT: NCAT, PERRLA, EOMI, MMM, anicteric conjunctivae. CVS: normal S1 and S2. RRR. No M/R/G. Resp: CTA B/L. No rhonchi, rales, crackles or wheezing. Abd: soft, non-tender, non-distended. BS+ in all 4 quadrants. MSK: Good ROM in BUE & BLE. No edema or rash. Neuro: Alert, awake and oriented x0. Cranial nerves: left sided facial droop, head turned to the left. Speech and language: yes/no answers. Motor system: Tone and bulk: Normal: Strength: right side strength 0/5, left side 2-3/5. Deep tendon reflexes: 2+ bilaterally symmetrical. Plantar reflex: Downgoing bilaterally. Sensory system: Impossible to assess due to cognitive deficit. Coordination: does not perform due to weakness ebveti-[id number]-ddpet and kclo-quoj-pcmb test bilaterally. Gait: Impossible to asses due to weakness. Romberg: impossible to asses due to weakness. No signs of meningeal irritation noted. Psych: impossible to asssess. Results Labs 07/21/24 05:01 07/21/24 05:01 Labs: Short CBC 07/20/24 Range/Units 11:36 WBC 10.8 (3.6-11.0) Thou/mm3 Hgb 9.5 L (12.0-16.0) g/dL Hct 31.7 L (36.0-46.0) % Plt Count 320 (140-440) Thou/mm3 BMP 07/20/24 11:36 Sodium 145 Potassium 3.2 L Chloride 108 H Carbon Dioxide 27.4 BUN 14 Creatinine 0.3 L Glucose 124 H Calcium 7.8 L Cardiac Enzymes 07/20/24 Range/Units 11:36 Troponin I < 0.020 (0.0-0.045) ng/mL Liver Function 07/20/24 Range/Units 11:36 Total Bilirubin 0.6 (0.3-1.2) mg/dL AST 31 (0-34) U/L ALT 7 L (10-49) U/L Alkaline Phosphatase 165 H (46-116) U/L Albumin 2.7 L (3.4-4.8) gm/dL Urine 07/20/24 Range/Units 14:52 Urine Color Yellow (Lt Yel-Yel) Urine Clarity Hazy (Clear/Hazy) Urine pH 6.5 (5.0-7.0) Ur Specific [place] 1.015 (1.001-1.035) Urine Protein 1+ A (Neg - Trace) Urine Glucose (UA) Negative (Negative) ABG Interpretation ABG results: 07/20/24 12:54 VBG pH 7.63 VBG pCO2 25 L VBG pO2 194 H VBG Base Excess 6 H Quality Measures Quality Measures VTE prophylaxis Advance care planning discussed with:: other Medications Home Medications and Allergies Home Medications ?Medication ?Instructions ?Recorded ?Confirmed ?Type venlafaxine 75 mg capsule,extended 75 mg PO DAILY 06/0107/21/24 History release 24 hr aspirin 81 mg tablet,delayed 81 mg PO DAILY 07/21/24 0 07/21/24 History release atorvastatin 40 mg tablet 40 mg PO HS 07/21/24 5 History nitrofurantoin 100 mg capsule 100 mg PO BID 07/21/24 0 07/21/24 History sertraline 25 mg tablet 25 mg PO QDAY 07/21/2407/21 History Allergies Allergy/AdvReac Type Severity Reaction Status Date / Time No Known Allergies Allergy Verified 06/21/23 16:17 Visit Medications Acetaminophen (Acetaminophen 325 Mg Tablet) 650 mg PO Q6H PRN PRN Reason: Fever >100 or pain 1-3 Stop: 08/19/24 18:01 Hydrocodone Bitart/Acetaminophen (Hydrocodone/Apap 5/325 Tablet) 1 tab PO Q6H PRN PRN Reason: PAIN SCALE 4-6 (Moderate Stop: 07/25/24 18:01 Aspirin (Aspirin Ec 81 Mg Tabec) 81 mg PO QDAY [facility] Stop: 08/20/24 08:59 Atorvastatin Calcium (Atorvastatin Calcium 20 Mg Tablet) 80 mg PO [facility] Stop: 08/19/24 20:59 Enoxaparin Sodium (Enoxaparin Sod Inj 40 Mg/0.4 Ml Syringe) 40 mg SC QDAY [facility] Stop: 08/04/24 08:59 Azithromycin 500 mg/ Sodium (Chloride) 250 mls @ 250 mls/hr IV QDAY [facility] Stop: 07/28/24 08:59 Sodium Chloride (Ns) 1,000 mls @ 75 mls/hr IV .[id number] [facility] Stop: 08/19/24 18:14 Ceftriaxone Sodium 1 gm/ (Sodium Chloride) 50 mls @ 100 mls/hr IV QDAY [facility] Stop: 07/28/24 08:59 Ondansetron HCl (Ondansetron Inj 2 Mg/Ml Inj 2 Ml) 4 mg IV Q4HR PRN PRN Reason: NAUSEA OR VOMITING Stop: 08/19/24 11:37 Potassium Chloride (Potassium Chloride 20 Meq Tabcr) 40 meq PO X1 ONE Stop: 07/20/24 18:12 Sertraline HCl (Sertraline Hcl 25 Mg Tablet) 25 mg PO QDAY ALISON Stop: 08/20/24 08:59 Venlafaxine HCl (Venlafaxine Xr 37.5 Mg Capcr) 75 mg PO HS ALISON Stop: 08/19/24 20:59 Discontinued Medications Clopidogrel Bisulfate (Clopidogrel Bisulfate 75 Mg Tablet) 300 mg PO X1 ONE Stop: 07/20/24 12:20 Last Admin: 07/20/24 14:51 Dose: Not Given Ceftriaxone Sodium/Dextrose (Rocephin/D5w 1gm Iv Premix) 1 gm in 50 mls @ 100 mls/hr IV X1 ONE Stop: 07/20/24 17:37 Last Admin: 07/20/24 17:55 Dose: 100 mls/hr Azithromycin 500 mg/ Sodium (Chloride) 250 mls @ 250 mls/hr IV X1 ONE Stop: 07/20/24 18:14 Last Admin: 07/20/24 17:56 Dose: 250 mls/hr Assessment & Plan Plan The patient is a 78 year old female with previous medical history of 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 #Stroke rule out #Acute encephalopathy #s/p CVA in 2023 #Right sided hemiplegia #Left sided weakness #Left sided facial droop Ddx: acute stroke vs stroke recrudescence vs metabolic encephalopathy CT head showed acute appearing infarct in the left occipital lobe. MRI head was degraded by motion, low suspition for acute stroke. CTA showed stenosis of intreacranial arteries. Plan: - telemetry - swallow creen - continue to treat potential sources of infection - aspirin 81 mg qday and plavix 75 mg qday - carotid duplex US - urine cultures, blood cultures pending - TSH, A1C - neurochecks q4hr #Aspiration pneumonia #Sacral decubitus ulcer #Hyperlipidemia #Depression #Rheumatoid arthritis - management per primary team Plan of care discussed with attending Dr. Guidry. Thea Bolden MD, PGY 1. Attending Provider Attestation/Addendum I personally have seen and examined the patient at the bedside and I agree with resident's findings, assessment and plan of care. Will continue with the current management and will fu with repeat MRI brain. Continue ASA and plavix.
--- NOTE | 2024-07-20 18:42 | ECHO_ITS ---
Transthoracic Echo Report Ht (in): 62 Wt (lb): 95 Exam Location: Echo Lab Status: Inpatient Business Dean: Donya Rodarte Indications: Procedure Performed: BP: 123 / 82 HR: 105 Technical Quality: Technically difficult study MEASUREMENTS (Male / Female) Normal Values 2D ECHO LV Diastolic Diameter PLAX 2.9 cm 4.2 - 5.9 / 3.9 - 5.3 cm LV Systolic Diameter PLAX 2.0 cm IVS Diastolic Thickness 1.0 cm 0.6 - 1.0 / 0.6 - 0.9 cm LVPW Diastolic Thickness 1.1 cm 0.6 - 1.0 / 0.6 - 0.9 cm LV Relative Wall Thickness 0.7 LVOT Diameter 1.4 cm Aortic Root Diameter 2.5 cm LA Volume Index 19.8 cm?/m? 16 - 28 cm?/m? DOPPLER AV Peak Velocity 373.5 cm/s AV Peak Gradient 55.8 mmHg AV Mean Gradient 26.0 mmHg AV Velocity Time Integral 84.8 cm LVOT Peak Velocity 146.0 cm/s LVOT Peak Gradient 8.5 mmHg LVOT Velocity Time Integral 31.8 cm LVOT Cardiac Index 3767.3 cm?/min?m? AV Area Cont Eq vti 0.6 cm? AV Area Cont Eq pk 0.6 cm? MV Area PHT 5.1 cm? MR Peak Velocity 692.7 cm/s MR Peak Gradient 191.9 mmHg Mitral E Point Velocity 63.9 cm/s Mitral A Point Velocity 93.5 cm/s Mitral E to A Ratio 0.7 LV E' Lateral Velocity 5.8 cm/s Mitral E to LV E' Lateral Ratio 11.1 LV E' Septal Velocity 5.3 cm/s Mitral E to LV E' Septal Ratio 12.0 TR Peak Velocity 250.5 cm/s TR Peak Gradient 25.1 mmHg FINDINGS Left Ventricle Normal left ventricular size, wall thickness, systolic function with no obvious regional wall motion abnormalities. Normal left ventricular diastolic filling pattern for age. The ejection fraction is visually estimated at 55-60%. Right Ventricle The right ventricle is normal in size and systolic function. The estimated right ventricular systolic pressure, 33 mmHg. RAP 5. Left Atrium The left atrium is normal by two-dimensional, color flow and Doppler imaging with no structural abnormalities, no thrombus formation present. Right Atrium The right atrium is normal by two-dimensional imaging, color flow and Doppler imaging with no structural abnormalities, no thrombus formation present. Atrial Septum The interatrial septum appears normal with no evidence of a shunt. Aorta The aorta is normal by two-dimensional, color flow and Doppler interrogation. Mitral Valve Severe mitral regurgitation. Mild thickening of the mitral valve leaflets. Aortic Valve Mild thickening of the aortic valve leaflets. Mild to moderate aortic valve stenosis. Tricuspid Valve Mild TR. 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 Pulmonic Valve The pulmonic valve is not well visualized. There is no significant pulmonic valve regurgitation. Vessels The pulmonary artery appears normal. The inferior vena cava pulmonary and hepatic veins appear normal. Pericardium The pericardium is normal by two-dimensional imaging. There is no significant pericardial effusion. 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 size 1-2 cm. Appears same as the ROBI performed last year. Bubble study negative last year on ROBI. Normal LV size and function. Estimated EF 55-60%. RV is normal in size and systolic function. Estimated RVSP, 33 mmHg. RAP 5. Modearte MR. Mild thickening of the MV. Mild thickening of the AV. Mild . Mild TR. No Pericardial effusion. Manny Hawkins (Electronically Signed) Final Date: 22 Jul 2024 15:47
[2024-07-20 19:09] LABS: Iron 13 mcg/dL (50-170); Percent Iron Saturation 8 % (20-55); Total Iron Binding Capacity 157 mcg/dL (250-425); Unsaturated Iron Binding 144 (225-295)
--- NOTE | 2024-07-20 19:22 | XR_ITS ---
Examination: Carotid arterial duplex scan, ultrasound. Date and time of exam: July 20, 2024 2129 hours INDICATIONS: Stroke alert today, left facial droop Technique: Multiple sonographic images have been obtained of the carotid arteries and vertebral arteries, B-mode/grayscale imaging and Doppler spectral analysis and color flow Peak systolic and diastolic velocities have been recorded. Systolic diastolic ratios have been calculated. Findings: Right peak systolic velocities: Distal internal carotid artery peak systolic velocity is .7 M/sec Proximal internal carotid artery peak systolic velocity is 0.4 M/sec Carotid bifurcation peak systolic velocity is 0.7 M/sec External carotid artery peak systolic velocity is 1.0 M/sec Vertebral artery flow is antegrade. Left peak systolic velocities: Distal internal carotid artery peak systolic velocity is 7 M/sec Proximal internal carotid artery peak systolic velocity is 0.5 M/sec Carotid bifurcation peak systolic velocity is 0.7 M/sec External carotid artery peak systolic velocity is 0.9 M/sec Vertebral artery flow is antegrade Doppler waveform analysis demonstrates no spectral broadening Impression: Right internal carotid artery demonstrates 0-10% stenosis. Left internal carotid artery demonstrates 0-10% stenosis.
[2024-07-20] MEDS: SODIUM CHLORIDE 0.9% 1000 ML 1,000 ML 75 ML IV (19:43)
[2024-07-20] MEDS: metroNIDAZOLE/NS 500 MG IVPB 500 MG/100 ML BAG 200 MG IV (19:43)
[2024-07-20 19:47] VITALS: BP 107/69; PULSE 113; RESP 20; TEMP 36.8; O2SAT 92
[2024-07-20 20:21] VITALS: BP 142/82; PULSE 115; RESP 20; TEMP 36.2; O2SAT 97
[2024-07-20] MEDS: POTASSIUM CHL 10 mEq IVPB 10 MEQ/100 ML BAG 100 MEQ IV (21:47)
[2024-07-21] VITALS (8 sets, daily range): BP systolic 93–132; BP diastolic 54–82; PULSE 86–106; RESP 15–97; TEMP 35.9–36.1; O2SAT 94–99; BMI 18.7; BMI 18.8
--- NOTE | 2024-07-21 | XR_ITS ---
Examinations: MRI Brain without intravenous contrast. MRA brain without intravenous contrast. MRA carotids without intravenous contrast 3-D vascular reconstructions Date and time of exam: July 21, 2024 1742 hours Comparison June 22, 2023 INDICATIONS: Onset left-sided facial droop yesterday with CT stroke alert Technique: Multiple axial and sagittal images of the brain have been obtained MRA brain carotid images without contrast obtained, including 3-D postprocessing, vascular maximum intensity projection images Findings: [place] is not enlarged. The optic chiasm and infundibular stalk are not remarkable. Prepontine and interpeduncular cisterns are not enlarged. No localized enlargement of the medulla or otto. Fourth ventricle and cerebellar tonsils normal in position. Subacute hemorrhage is not seen. Fourth ventricle is midline. Mass in the cerebellopontine angle region is not evident. 7th and 8th nerve complexes exhibits symmetry. Globes are symmetrical with no retro-orbital mass. Increased white matter signal prominent especially left occipital lobe Diffusion-weighted images demonstrate 8mm focus restricted diffusion left occipital lobe diffusion image 11 with matching ADC signal deficit Mass-effect upon the ventricular system is not identified. MRA carotid images degraded by patient motion. MRA brain images diffuse cerebral arterial irregularity including high-grade stenoses left posterior cerebral artery Impression: New 8 mm acute infarct left occipital lobe High-grade stenoses left posterior cerebral artery
[2024-07-21] MEDS: metroNIDAZOLE/NS 500 MG IVPB 500 MG/100 ML BAG 200 MG IV ×3 (05:31→22:31)
[2024-07-21 05:49] LABS: Basophils % (Auto) 0 % (0-2.5); Eosinophils # (Auto) 0.1 Thou/mm3 (0.0-0.5); Eosinophils % (Auto) 1 % (0-10); Hematocrit 29.6 % (36.0-46.0); Hemoglobin 8.6 g/dL (12.0-16.0); Immature Granulocytes % (Auto) 0 % (0-0); Immature Granulocytes Auto 0.04 Thou/mm3 (0.00-0.00); Lymphocytes # (Auto) 1.1 Thou/mm3 (1.0-4.8); Lymphocytes % (Auto) 12 % (10-50); Mean Corpuscular HGB Conc 29.1 g/dl (31.0-37.0); Mean Corpuscular Hemoglobin 22.8 pg (25.0-35.0); Mean Corpuscular Volume 78 fL (80-100); Monocytes % (Auto) 10 % (0-12); Neutrophils % (Auto) 76 % (37-80); Nucleated Red Blood Cell % 0 /100 WBC (0); Platelet Count 237 Thou/mm3 (140-440); RDW Standard Deviation 53.1 fL (36.4-46.3); Red Blood Count 3.78 Miln/mm3 (4.00-5.20); White Blood Count 9.2 Thou/mm3 (3.6-11.0)
[2024-07-21 06:02] LABS: INR 1.1 (0.9-1.3); Partial Thromboplastin Time 30.5 Seconds (22.0-36.0); Prothrombin Time 11.7 Seconds (9.0-12.2)
[2024-07-21 06:08] LABS: Ferritin 467 ng/mL (7.3-270.7)
[2024-07-21 06:18] LABS: Alanine Aminotransferase < 7 U/L (10-49); Albumin, Serum 2.5 gm/dL (3.4-4.8); Albumin/Globulin Ratio 0.7 (1.2-2.2); Alkaline Phosphatase 135 U/L (46-116); Anion Gap 13 (7-16); Aspartate Amino Transferase 27 U/L (0-34); BUN/Creatinine Ratio 47 Ratio (12-20); Bilirubin,Total 0.5 mg/dL (0.3-1.2); Blood Urea Nitrogen 14 mg/dL (9-23); Calcium 7.9 mg/dL (8.3-10.6); Calcium (Corrected) 9.1 mg/dL (8.5-10.1); Carbon Dioxide 25.3 mMol/L (20.0-31.0); Chloride 106 mMol/L (98-107); Creatinine (Component) 0.3 mg/dL (0.6-1.3); Estimated Creatinine Clearance 115.1 mL/min (>60); Globulin 3.8 gm/dL (2.3-3.5); Glucose 72 mg/dL (74-106); Magnesium 2.1 mg/dL (1.6-2.6); Osmolality,Calculated 286 (275-295); Potassium 2.8 mMol/L (3.4-5.1); Sodium 144 mMol/L (136-145); Thyroid Stimulating Hormone 2.17 uIU/mL (0.55-4.78); Total Protein 6.3 gm/dL (5.7-8.2); eGFR > 60 See Note
[2024-07-21 06:23] LABS: Glucose Estimated Average 105 mg/dL (80-131); Hemoglobin A1C 5.3 % Hgb (4.8-6.0)
--- NOTE | 2024-07-21 08:19 | PCS.ST ---
Swallow Evaluation completed. See report for details. Baseline dysphagia. Recommend Dysphagia 1 (puree) and precautions.
[2024-07-21] MEDS: POTASSIUM CHL 10 mEq IVPB 10 MEQ/100 ML BAG 100 MEQ IV ×4 (08:25→12:39)
[2024-07-21] MEDS: ENOXAPARIN SOD INJ 40 MG/0.4 ML SYRINGE SC (08:26)
[2024-07-21] MEDS: SODIUM CHLORIDE 0.9% 1000 ML 1,000 ML 75 ML IV (08:27)
[2024-07-21] MEDS: PANTOPRAZOLE INJ 40 MG VIAL IV (08:27)
[2024-07-21] MEDS: cefTRIAXone/D5w 1gm IV premix 1 GM/50 ML BAG IV (09:36)
[2024-07-21] MEDS: ASPIRIN 81 MG CHEW PO (09:42)
[2024-07-21] MEDS: CLOPIDOGREL BISULFATE 75 MG TABLET PO (09:42)
[2024-07-21] MEDS: DEXTROSE 5%-WATER 1,000 ML 75 ML IV (09:43)
--- NOTE | 2024-07-21 10:53 | PC.DIETICIAN ---
Nutrition recommendations: 1. Dys Pureed diet. 2. Mighty Shake 120ml BID with lunch and dinner. 3. Andrew 1 pkt (flavored) BID mixed with 6-8 oz water/juice. 4. Thiamine 100mg/day for 7 days. 5. Multivitamins/Minerals. 6. Daily labs for P, K, and Mg; replace as needed.
--- NOTE | 2024-07-21 11:32 | PC.SS ---
Initial assessment: this is 78 year old female admitted for acute CVA. Patient information received by patient's son Neel Dewitt at bedside. Neel informs he resides at home with the patient. Neel is identified as the patient's emergency contact. Per son Neel, the patient has been bed bound for over a year and will require ambulance transport arranged via [facility] at time of discharge. Confirmed home address to be [address] [place] [address]. [place] [id number]. Patient PCP is provider Maric Fernandes. Patient to return home upon discharge. D/c plan: Home Next of kin: sonNeel
[2024-07-21 12:24] LABS: Path Review Blood Smear Sent to Pathologist
--- NOTE | 2024-07-21 13:55 | PD.RESPRO ---
Documentation for date of: 07/21/24 Subjective Subjective Interval history: No acute events overnight, vital signs stable, patient afebrile. Significant labs include a potassium of 2.8, stable hemoglobin 8.6. TSH within normal limits, A1c within normal limits. Exam Vital Signs Temp Pulse Resp BP Pulse Ox O2 Del Method 96.6 F L 105 H 18 123/82 99 Room Air 07/21/24 12:00 07/21/24 12:00 07/21/24 12:00 07/21/24 12:00 07/21/24 12:00 07/21/24 12:00 Narrative Exam Gen: Thin HEENT: NCAT CVS: normal S1 and S2. RRR. No M/R/G. Resp: CTA B/L. No rhonchi, rales, crackles or wheezing. Abd: soft, non-tender, non-distended. BS+ in all 4 quadrants. Neuro: Alert, awake and oriented x0. Objective Labs 07/21/24 05:01 07/21/24 05:01 Labs: Laboratory Results - last 24 hr 07/20/24 07/20/24 07/21/24 11:36 14:52 05:01 WBC 9.2 RBC 3.78 L Hgb 8.6 L Hct 29.6 L MCV 78 L MCH 22.8 L MCHC 29.1 L RDW Std Deviation 53.1 H Plt Count 237 D Neut % (Auto) 76 Lymph % (Auto) 12 [place] % (Auto) 10 Eos % (Auto) 1 Baso % (Auto) 0 Neut # (Auto) 7.0 Lymph # (Auto) 1.1 [place] # (Auto) 1.0 H Eos # (Auto) 0.1 Baso # (Auto) 0.0 Immature Gran # (Auto) 0.04 H Absolute Nucleated RBC 0.00 Immature Gran % 0 Nucleated RBC % 0 Smear Path Review Sent to Pathologist PT 11.7 INR 1.1 APTT 30.5 Sodium 144 Potassium 2.8 L Chloride 106 Carbon Dioxide 25.3 Anion Gap 13 BUN 14 Creatinine 0.3 L Estim Creat Clear Calc 115.1 eGFR > 60 BUN/Creatinine Ratio 47 H Glucose [address] Glu mg/dL 105 Hemoglobin A1c 5.3 Calculated Osmolality 286 Calcium 7.9 L Corrected Calcium 9.1 Phosphorus 3.0 Magnesium 2.1 Iron 13 L TIBC 157 L Iron Saturation 8 L Unsat Iron Binding 144 L Ferritin 467 H Total Bilirubin 0.5 AST 27 ALT < 7 L Alkaline Phosphatase 135 H D Total Protein 6.3 Albumin 2.5 L Globulin 3.8 H Albumin/Globulin Ratio 0.7 L TSH 2.17 Ur Collection Type Catheter Urine Color Yellow Urine Clarity Hazy Urine pH 6.5 Ur Specific [place] 1.015 Urine Protein 1+ A Urine Glucose (UA) Negative Urine Ketones Negative Urine Blood 3+ A Urine Nitrite Negative Urine Bilirubin Negative Urine Urobilinogen (Auto) 3.0 Ur Leukocyte Esterase Negative Urine RBC 77 H Urine WBC 42 H Ur Squamous Epith Cells 3 Calcium Oxalate Crystal 1+ A Urine Bacteria 2+ A Hyaline Casts < 1 Urine Opiates Screen Negative Urine Fentanyl Screen Negative Ur Barbiturates Screen Negative U Amphetamin/Meth Scrn Negative U Benzodiazepines Scrn Negative U Cocaine Metab Screen Negative U Marijuana (THC) Screen Negative ABG Interpretation ABG results: 07/20/24 12:54 VBG pH 7.63 VBG pCO2 25 L VBG pO2 194 H VBG Base Excess 6 H Quality Measures Quality Measures VTE prophylaxis Advance care planning discussed with:: child Assessment & Plan Assessment Current Active Medications: Generic Name Dose Route Start Last Admin Trade Name Freq PRN Reason Stop Dose Admin Acetaminophen 650 mg 07/20/24 18:02 Acetaminophen 325 Mg Tablet PO 08/19/24 18:01 Q6H PRN Fever >100 or pain 1-3 Hydrocodone Bitart/Acetaminophen 1 tab 07/20/24 18:02 Hydrocodone/Apap 5/325 Tablet PO 07/25/24 18:01 Q6H PRN PAIN SCALE 4-6 (Moderate Aspirin 81 mg 07/21/24 09:00 07/21/24 09:42 Aspirin 81 Mg Chew PO 08/20/24 08:59 81 mg QDAY ALISON Administration Atorvastatin Calcium 80 mg 07/20/24 21:00 07/20/24 21:48 Atorvastatin Calcium 20 Mg Tablet PO 08/19/24 20:59 Not Given HS ALISON Clopidogrel Bisulfate 75 mg 07/21/24 09:00 07/21/24 09:42 Clopidogrel Bisulfate 75 Mg Tablet PO 08/20/24 08:59 75 mg QDAY ALISON Administration Enoxaparin Sodium 40 mg 07/21/24 09:00 07/21/24 08:26 Enoxaparin Sod Inj 40 Mg/0.4 Ml Syringe SC 08/04/24 08:59 40 mg QDAY ALISON Administration Azithromycin 500 mg/ Sodium 250 mls @ 250 mls/hr 07/21/24 21:00 Chloride IV 07/28/24 20:59 QDAY@2100 ALISON Metronidazole 500 mg in 100 mls @ 200 mls/hr 07/20/24 18:43 07/21/24 05:31 Flagyl 500 Mg Iv IV 07/27/24 18:42 200 mls/hr Q8HR ALISON Administration Dextrose 1,000 mls @ 75 mls/hr 07/21/24 08:30 07/21/24 09:43 D5w IV 08/20/24 08:29 75 mls/hr .[id number] ALISON Administration Ceftriaxone Sodium/Dextrose 1 gm in 50 mls @ 100 mls/hr 07/21/24 09:00 07/21/24 09:36 Rocephin/D5w 1gm Iv Premix IV 07/28/24 08:59 100 mls/hr QDAY ALISON Administration Lorazepam 1 mg 07/21/24 10:52 Lorazepam 2 Mg/Ml Vial IVP X1 PRN Give 20 mins before MRI Pantoprazole Sodium 40 mg 07/21/24 09:00 07/21/24 08:27 Pantoprazole Inj 40 Mg Vial IV 08/20/24 08:59 40 mg QDAY ALISON Administration Scopolamine 1 mg 07/20/24 19:35 Scopolamine 1 Mg Tdsy TOP 08/19/24 19:34 Q72H PRN NAUSEA OR VOMITING Sertraline HCl 25 mg 07/21/24 21:00 Sertraline Hcl 25 Mg Tablet PO 08/20/24 20:59 HS ALISON Plan Kallie is a 78 y/o female with PMHx of previous CVAs (bedbound, R sided deficits), HTN, HLD, 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 #Acute CVA #History of previous strokes #Bedbound #Hx of Atrial myxoma Head CT shows acute infarct on the left occipital lobe Head neck CTA shows 80% stenosis of distal M1 segment MCA, 40% stenosis of the left MCA, and multiple other areas of stenosis, no LVO Previous TTE and ROBI show mass that may be consistent with atrial myxoma, however patient has not had surgical correction or further consultation No PFO on last ROBI done in 2023 Plan: ? Neurology consulted, appreciate recs ? MR stroke protocol ? Echo pending ? Neurochecks every 4 hours ? Head of bed elevation 30 degrees ? DVT prophylaxis ? DAPT ? Lipitor 80 mg #Aspiration pneumonia #Sepsis rule out Chest x-ray shows possible infiltrate in the left lobe, however aspiration is typically with right lobe however can still happen Patient is at high risk for aspiration due to patient being bedbound Patient at this time does not meet sepsis criteria, no evidence of end organ damage Plan: ? Rocephin 1 g IV daily with Flagyl 500 mg IV every 8 hours ? MRSA Nares pending ? Sputum culture if ca obtain ? Follow-up blood cultures #Hypokalemia Plan: ? Replete electrolytes as necessary # Bacteriuria, likely colonized, patient has chronic indwelling Bradshaw catheter Plan: ? Patient already on antibiotics however not specifically treating for UTI #Sinus Tachycardia?improved #Prolonged QTc #Hypertension #Hyperlipidemia Plan: ? Resumed home Lipitor 80 mg at bedtime ? CTM ? Avoiding QTc prolonging agents #Decubitus ulcer Will further examine as this could be a source of infection Plan: ? Wound care consulted #Microcytic anemia Hgb 9.5, MCV 75 Plan: ?CTM #History of depression Concerning for resuming Zoloft and Effexor which are QT prolonging agents as patient currently has prolonged QTc (493) Plan: ? Hold Effexor and Zoloft at this time ? Will order repeat EKG tomorrow before resuming #Health Maintenance Disposition: Pending clinical improvement and specialist recommendations, will be discharged home under the care of her son DVT prophylaxis: Lovenox GI prophylaxis: None indicated at this time Diet: Pending nurse swallow screen CODE STATUS: DNR Attending Provider Attestation/Addendum I have discussed and was present for the essential components of the history, physical examination, diagnosis, and treatment plan with the resident. I agree with the patient's care as documented by the resident and amended herein by me. Irwin Kebede DO. Although this document has been carefully reviewed, there may still be some phonetic and other typographical errors. These errors are purely grammatical due to imperfections in the software program and should not be construed in any way to compromise the substance of the patient's medical care during this visit.
--- NOTE | 2024-07-21 14:33 | PC.SS ---
Rounding note; pending echo and imaging due to stroke.
--- NOTE | 2024-07-21 17:12 | PD.RESPRO ---
Documentation for date of: 07/21/24 Subjective Subjective Interval history: Patient was seen and examined by the bedside. No acute overnight events. Patient seems to be more awake, tries to track objects, per family members, she talks to them. Son reports that she mostly talks to the family members. Exam Vital Signs Temp Pulse Resp BP Pulse Ox O2 Del Method 96.6 F L 87 18 123/82 99 Room Air 07/21/24 12:00 07/21/24 16:00 07/21/24 12:00 07/21/24 12:00 07/21/24 12:00 07/21/24 12:00 Narrative Exam Gen: Well-developed and well-nourished. HEENT: NCAT, PERRLA, EOMI, MMM, anicteric conjunctivae. CVS: normal S1 and S2. RRR. No M/R/G. Resp: CTA B/L. No rhonchi, rales, crackles or wheezing. Abd: soft, non-tender, non-distended. BS+ in all 4 quadrants. MSK: Bilateral extremity contractures, ulnar digital and valgus toe deviation. No edema or rash. Sacral pressure ulcer with yellowish discharge. Neuro: Alert, awake and oriented x0. Cranial nerves: left sided facial droop, head turned to the left. Speech and language: yes/no answers. Motor system: Tone and bulk: Normal: Strength: right side strength 0/5, left side 2-3/5. Deep tendon reflexes: 2+ bilaterally symmetrical. Plantar reflex: Downgoing bilaterally. Sensory system: Impossible to assess due to cognitive deficit. Coordination: does not perform due to weakness [id number] and ucnv-[id number] test bilaterally. Gait: Impossible to asses due to weakness. Romberg: impossible to asses due to weakness. No signs of meningeal irritation noted. Psych: impossible to asssess. Objective Labs 07/21/24 05:01 07/21/24 05:01 Labs: Laboratory Results - last 24 hr 07/20/24 07/21/24 11:36 05:01 WBC 9.2 RBC 3.78 L Hgb 8.6 L Hct 29.6 L MCV 78 L MCH 22.8 L MCHC 29.1 L RDW Std Deviation 53.1 H Plt Count 237 D Neut % (Auto) 76 Lymph % (Auto) 12 [place] % (Auto) 10 Eos % (Auto) 1 Baso % (Auto) 0 Neut # (Auto) 7.0 Lymph # (Auto) 1.1 [place] # (Auto) 1.0 H Eos # (Auto) 0.1 Baso # (Auto) 0.0 Immature Gran # (Auto) 0.04 H Absolute Nucleated RBC 0.00 Immature Gran % 0 Nucleated RBC % 0 Smear Path Review Sent to Pathologist PT 11.7 INR 1.1 APTT 30.5 Sodium 144 Potassium 2.8 L Chloride 106 Carbon Dioxide 25.3 Anion Gap 13 BUN 14 Creatinine 0.3 L Estim Creat Clear Calc 115.1 eGFR > 60 BUN/Creatinine Ratio 47 H Glucose [address] Glu mg/dL 105 Hemoglobin A1c 5.3 Calculated Osmolality 286 Calcium 7.9 L Corrected Calcium 9.1 Phosphorus 3.0 Magnesium 2.1 Iron 13 L TIBC 157 L Iron Saturation 8 L Unsat Iron Binding 144 L Ferritin 467 H Total Bilirubin 0.5 AST 27 ALT < 7 L Alkaline Phosphatase 135 H D Total Protein 6.3 Albumin 2.5 L Globulin 3.8 H Albumin/Globulin Ratio 0.7 L TSH 2.17 ABG Interpretation ABG results: 07/20/24 12:54 VBG pH 7.63 VBG pCO2 25 L VBG pO2 194 H VBG Base Excess 6 H Quality Measures Quality Measures VTE prophylaxis Advance care planning discussed with:: other Assessment & Plan Assessment Current Active Medications: Generic Name Dose Route Start Last Admin Trade Name Freq PRN Reason Stop Dose Admin Acetaminophen 650 mg 07/20/24 18:02 Acetaminophen 325 Mg Tablet PO 08/19/24 18:01 Q6H PRN Fever >100 or pain 1-3 Hydrocodone Bitart/Acetaminophen 1 tab 07/20/24 18:02 Hydrocodone/Apap 5/325 Tablet PO 07/25/24 18:01 Q6H PRN PAIN SCALE 4-6 (Moderate Aspirin 81 mg 07/21/24 09:00 07/21/24 09:42 Aspirin 81 Mg Chew PO 08/20/24 08:59 81 mg QDAY ALISON Administration Atorvastatin Calcium 80 mg 07/20/24 21:00 07/20/24 21:48 Atorvastatin Calcium 20 Mg Tablet PO 08/19/24 20:59 Not Given HS ALISON Clopidogrel Bisulfate 75 mg 07/21/24 09:00 07/21/24 09:42 Clopidogrel Bisulfate 75 Mg Tablet PO 08/20/24 08:59 75 mg QDAY ALISON Administration Enoxaparin Sodium 40 mg 07/21/24 09:00 07/21/24 08:26 Enoxaparin Sod Inj 40 Mg/0.4 Ml Syringe SC 08/04/24 08:59 40 mg QDAY ALISON Administration Azithromycin 500 mg/ Sodium 250 mls @ 250 mls/hr 07/21/24 21:00 Chloride IV 07/28/24 20:59 QDAY@2100 ALISON Metronidazole 500 mg in 100 mls @ 200 mls/hr 07/20/24 18:43 07/21/24 14:10 Flagyl 500 Mg Iv IV 07/27/24 18:42 200 mls/hr Q8HR ALISON Administration Dextrose 1,000 mls @ 75 mls/hr 07/21/24 08:30 07/21/24 09:43 D5w IV 08/20/24 08:29 75 mls/hr .[id number] ALISON Administration Ceftriaxone Sodium/Dextrose 1 gm in 50 mls @ 100 mls/hr 07/21/24 09:00 07/21/24 09:36 Rocephin/D5w 1gm Iv Premix IV 07/28/24 08:59 100 mls/hr QDAY ALISON Administration Lorazepam 1 mg 07/21/24 10:52 Lorazepam 2 Mg/Ml Vial IVP X1 PRN Give 20 mins before MRI Pantoprazole Sodium 40 mg 07/21/24 09:00 07/21/24 08:27 Pantoprazole Inj 40 Mg Vial IV 08/20/24 08:59 40 mg QDAY ALISON Administration Scopolamine 1 mg 07/20/24 19:35 Scopolamine 1 Mg Tdsy TOP 08/19/24 19:34 Q72H PRN NAUSEA OR VOMITING Sertraline HCl 25 mg 07/21/24 21:00 Sertraline Hcl 25 Mg Tablet PO 08/20/24 20:59 HS ALISON Plan The patient is a 78 year old female with previous medical history of 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 #Stroke rule out #Acute encephalopathy #s/p CVA in 2023 #Right sided hemiplegia #Left sided weakness #Left sided facial droop Ddx: acute stroke vs stroke recrudescence vs metabolic encephalopathy CT head showed acute appearing infarct in the left occipital lobe. MRI head was degraded by motion, low suspition for acute stroke. CTA showed stenosis of intreacranial arteries. TSH, A1c in the normal range. Plan: - telemetry - continue to treat potential sources of infection - aspirin 81 mg qday and plavix 75 mg qday - atorvastatin 80 mg qday - carotid duplex US negative for significnt stenosis - urine cultures grew GNR, speciation and sensitivity pending, blood cultures pending - neurochecks q4hr - repeat MRI ordered - Echo ordered #Aspiration pneumonia #Sacral decubitus ulcer #Hyperlipidemia #Depression #Rheumatoid arthritis - management per primary team Plan of care discussed with attending Dr. Guidry. Thea Bolden MD, PGY 1. Attending Provider Attestation/Addendum I personally have seen and examined the patient at the bedside and I agree with resident's findings, assessment and plan of care. Fu with repeat MRI brain tomorrow to evaluate further. Continue with ASA and plavix with statin.
[2024-07-21] MEDS: LORazepam 2 MG/ML VIAL 1 MG IVP (17:28)
[2024-07-21] MEDS: AZITHROMYCIN INJ 500 MG in SODIUM CHLORIDE 0.9% 250 ML 250 ML 250 MG IV (21:19)
[2024-07-21] MEDS: SERTRALINE HCL 25 MG TABLET PO (22:30)
[2024-07-21] MEDS: ATORVASTATIN CALCIUM 20 MG TABLET 80 MG PO (22:31)
[2024-07-22] VITALS (7 sets, daily range): BP systolic 94–123; BP diastolic 53–69; PULSE 74–96; RESP 12–93; TEMP 36.1–36.3; O2SAT 97–100; BMI 21.7
[2024-07-22] MEDS: DEXTROSE 5%-WATER 1,000 ML 75 ML IV (00:47)
[2024-07-22] MEDS: metroNIDAZOLE/NS 500 MG IVPB 500 MG/100 ML BAG 200 MG IV ×3 (05:53→21:57)
[2024-07-22 06:21] LABS: Basophils % (Auto) 0 % (0-2.5); Eosinophils # (Auto) 0.3 Thou/mm3 (0.0-0.5); Eosinophils % (Auto) 3 % (0-10); Hematocrit 26.5 % (36.0-46.0); Immature Granulocytes % (Auto) 0 % (0-0); Immature Granulocytes Auto 0.04 Thou/mm3 (0.00-0.00); Lymphocytes # (Auto) 1.1 Thou/mm3 (1.0-4.8); Lymphocytes % (Auto) 12 % (10-50); Mean Corpuscular HGB Conc 30.2 g/dl (31.0-37.0); Mean Corpuscular Hemoglobin 22.8 pg (25.0-35.0); Mean Corpuscular Volume 76 fL (80-100); Monocytes # (Auto) 0.8 Thou/mm3 (0.0-0.8); Monocytes % (Auto) 8 % (0-12); Neutrophils % (Auto) 76 % (37-80); Nucleated Red Blood Cell % 0 /100 WBC (0); Platelet Count 225 Thou/mm3 (140-440); RDW Standard Deviation 51.5 fL (36.4-46.3); Red Blood Count 3.51 Miln/mm3 (4.00-5.20); White Blood Count 9.3 Thou/mm3 (3.6-11.0)
[2024-07-22 07:02] LABS: Alanine Aminotransferase < 7 U/L (10-49); Albumin, Serum 2.1 gm/dL (3.4-4.8); Albumin/Globulin Ratio 0.6 (1.2-2.2); Alkaline Phosphatase 113 U/L (46-116); Anion Gap 9 (7-16); Aspartate Amino Transferase 21 U/L (0-34); BUN/Creatinine Ratio 60 Ratio (12-20); Bilirubin,Total 0.5 mg/dL (0.3-1.2); Blood Urea Nitrogen 12 mg/dL (9-23); Calcium 7.1 mg/dL (8.3-10.6); Calcium (Corrected) 8.6 mg/dL (8.5-10.1); Carbon Dioxide 24.9 mMol/L (20.0-31.0); Chloride 106 mMol/L (98-107); Creatinine (Component) 0.2 mg/dL (0.6-1.3); Estimated Creatinine Clearance 177.8 mL/min (>60); Globulin 3.4 gm/dL (2.3-3.5); Glucose 121 mg/dL (74-106); Magnesium 1.7 mg/dL (1.6-2.6); Osmolality,Calculated 280 (275-295); Sodium 140 mMol/L (136-145); Total Protein 5.5 gm/dL (5.7-8.2); eGFR > 60 See Note
[2024-07-22] MEDS: PANTOPRAZOLE INJ 40 MG VIAL IV (09:56)
[2024-07-22] MEDS: cefTRIAXone/D5w 1gm IV premix 1 GM/50 ML BAG IV (09:57)
[2024-07-22] MEDS: ENOXAPARIN SOD INJ 40 MG/0.4 ML SYRINGE SC (09:57)
[2024-07-22] MEDS: THIAMINE 100 MG TABLET PO (10:07)
[2024-07-22] MEDS: CLOPIDOGREL BISULFATE 75 MG TABLET PO (10:07)
[2024-07-22] MEDS: MULTIVITAMINS TABLET 1 TAB PO (10:07)
[2024-07-22] MEDS: ASPIRIN 81 MG CHEW PO (10:07)
[2024-07-22] MEDS: POTASSIUM CHL 10 mEq IVPB 10 MEQ/100 ML BAG 75 MEQ IV ×4 (10:27→15:09)
--- NOTE | 2024-07-22 14:42 | PC.SS ---
Rounding note: pending echo. Patient to return home upon d/c. Will need gurney transportation arranged.
--- NOTE | 2024-07-22 17:02 | ESPR_ITS ---
Documentation for date of: 07/22/24 Subjective Subjective Interval history: Patient examined at bedside today. No acute overnight events. Patient appears to be more lethargic and sleepy today. Will replete potassium today. Discussed with family who did not want hospice for patient and wants to have patient home. No other complaints at this time Exam Vital Signs Temp Pulse Resp BP Pulse Ox O2 Del Method 97.2 F 90 19 97/57 L 98 Room Air 07/22/24 16:00 07/22/24 16:00 07/22/24 16:00 07/22/24 16:00 07/22/24 16:00 07/22/24 12:00 Narrative Exam General: AAOx2, anorexic, weak, frail, elderly woman, appears to be lethargic HEENT: Dry mucous membranes, conjunctiva clear, limited exam on extraocular movements as patient is unable to cooperate PERRLA, sternal and clavicle bossing Cardiovascular: S1-S2, prominent heart sounds indicative of systolic murmur, RRR Pulmonary: CTAB bilat no cough, no wheezing GI: No tenderness to light or deep palpitation, no guarding, rigidity, rebound tenderness or distension : Bradshaw chronic Extremities: No presence of trace or pitting edema in lower extremities bilaterally, dorsalis pedis pulses +2 bilaterally, some venous stasis in lower extremities, prominence rheumatoid deformities in feet and hands appearing swan neck like Neuro: AAOx2, bedbound, pupils round and reactive to light, limited exam as patient is unable to cooperate, able to move her left hand slightly Psych: Unable to cooperate Objective Labs 07/23/24 05:20 07/23/24 05:20 Labs: Laboratory Results - last 24 hr 07/22/24 05:10 WBC 9.3 RBC 3.51 L Hgb 8.0 L Hct 26.5 L MCV 76 L MCH 22.8 L MCHC 30.2 L RDW Std Deviation 51.5 H Plt Count 225 Neut % (Auto) 76 Lymph % (Auto) 12 [place] % (Auto) 8 Eos % (Auto) 3 Baso % (Auto) 0 Neut # (Auto) 7.0 Lymph # (Auto) 1.1 [place] # (Auto) 0.8 Eos # (Auto) 0.3 Baso # (Auto) 0.0 Immature Gran # (Auto) 0.04 H Absolute Nucleated RBC 0.00 Immature Gran % 0 Nucleated RBC % 0 Sodium 140 Potassium 3.0 L Chloride 106 Carbon Dioxide 24.9 Anion Gap 9 BUN 12 Creatinine 0.2 L Estim Creat Clear Calc 177.8 eGFR > 60 BUN/Creatinine Ratio 60 H Glucose 121 H D Calculated Osmolality 280 Calcium 7.1 L Corrected Calcium 8.6 Magnesium 1.7 Total Bilirubin 0.5 AST 21 ALT < 7 L Alkaline Phosphatase 113 D Total Protein 5.5 L Albumin 2.1 L Globulin 3.4 Albumin/Globulin Ratio 0.6 L ABG Interpretation ABG results: 07/20/24 12:54 VBG pH 7.63 VBG pCO2 25 L VBG pO2 194 H VBG Base Excess 6 H Quality Measures Quality Measures VTE prophylaxis Advance care planning discussed with:: patient and child Assessment & Plan Assessment Current Active Medications: Generic Name Dose Route Start Last Admin Trade Name Freq PRN Reason Stop Dose Admin Acetaminophen 650 mg 07/20/24 18:02 Acetaminophen 325 Mg Tablet PO 08/19/24 18:01 Q6H PRN Fever >100 or pain 1-3 Hydrocodone Bitart/Acetaminophen 1 tab 07/20/24 18:02 Hydrocodone/Apap 5/325 Tablet PO 07/25/24 18:01 Q6H PRN PAIN SCALE 4-6 (Moderate Aspirin 81 mg 07/21/24 09:00 07/22/24 10:07 Aspirin 81 Mg Chew PO 08/20/24 08:59 81 mg QDAY ALISON Administration Atorvastatin Calcium 80 mg 07/20/24 21:00 07/21/24 22:31 Atorvastatin Calcium 20 Mg Tablet PO 08/19/24 20:59 80 mg HS ALISON Administration Clopidogrel Bisulfate 75 mg 07/21/24 09:00 07/22/24 10:07 Clopidogrel Bisulfate 75 Mg Tablet PO 08/20/24 08:59 75 mg QDAY ALISON Administration Enoxaparin Sodium 40 mg 07/21/24 09:00 07/22/24 09:57 Enoxaparin Sod Inj 40 Mg/0.4 Ml Syringe SC 08/04/24 08:59 40 mg QDAY ALISON Administration Metronidazole 500 mg in 100 mls @ 200 mls/hr 07/20/24 18:43 07/22/24 13:18 Flagyl 500 Mg Iv IV 07/27/24 18:42 200 mls/hr Q8HR ALISON Administration Ceftriaxone Sodium/Dextrose 1 gm in 50 mls @ 100 mls/hr 07/21/24 09:00 07/22/24 09:57 Rocephin/D5w 1gm Iv Premix IV 07/28/24 08:59 100 mls/hr QDAY ALISON Administration Multivitamins 1 tab 07/22/24 09:00 07/22/24 10:07 Multivitamins Tablet PO 08/21/24 08:59 1 tab QDAY ALISON Administration Pantoprazole Sodium 40 mg 07/23/24 09:00 Pantoprazole 40 Mg Tablet PO 08/22/24 08:59 QDAY ALISON Protocol Scopolamine 1 mg 07/20/24 19:35 Scopolamine 1 Mg Tdsy TOP 08/19/24 19:34 Q72H PRN NAUSEA OR VOMITING Sertraline HCl 25 mg 07/21/24 21:00 07/21/24 22:30 Sertraline Hcl 25 Mg Tablet PO 08/20/24 20:59 25 mg HS ALISON Administration Thiamine HCl 100 mg 07/22/24 09:00 07/22/24 10:07 Thiamine 100 Mg Tablet PO 07/28/24 08:59 100 mg QDAY ALISON Administration Plan Assessment Kallie is a 78 y/o female with PMHx of previous CVAs (bedbound, R sided deficits), HTN, HLD, 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 #Acute CVA of L occipital lobe, 8mm #History of previous strokes #Bedbound #Hx of Atrial myxoma MRI shows new 8 mm acute infarct in left occipital lobe with high-grade stenosis in left posterior cerebral artery Patient does have areas of stenoses in MCA as well seen on head neck CTA Previous ROBI shows mass that appears to be atrial myxoma, however will reimage Plan: ? Neurology consulted, appreciate recs ? Echo pending ? Neurochecks every 4 hours ? Head of bed elevation 30 degrees ? DVT prophylaxis ? DAPT ? Lipitor 80 mg #Aspiration pneumonia #Sepsis rule out Patient at this time does not meet sepsis criteria, no evidence of end organ damage BC NG2D Plan: ? Rocephin 1 g IV daily with Flagyl 500 mg IV every 8 hours ? MRSA Nares pending ? Sputum culture if can obtain #Hypokalemia 3.0 today Plan: ? Replete electrolytes as necessary #Bacteriuria, likely colonized, patient has chronic indwelling Bradshaw catheter Plan: ? Patient already on antibiotics however not specifically treating for UTI #Sinus Tachycardia?improved #Prolonged QTc #Hypertension #Hyperlipidemia Plan: ? Resumed home Lipitor 80 mg at bedtime ? CTM ? Avoiding QTc prolonging agents #Decubitus ulcer Plan: ? Wound care consulted #Microcytic anemia Hgb 8.0 Plan: ? CTM #History of depression Concerning for resuming Zoloft and Effexor which are QT prolonging agents as patient currently has prolonged QTc (493) Plan: ? Hold Effexor and Zoloft at this time due to prolonged QTc #Health Maintenance Disposition: Pending clinical improvement and specialist recommendations, will be discharged home under the care of her son, anticipate d/c tomorrow with clinical improvement DVT prophylaxis: Lovenox GI prophylaxis: None indicated at this time Diet: Dysphagia 1- Pureed CODE STATUS: DNR Patient seen and care discussed with my attending physician, Dr. Delio Duarte, PGY-1 Attending Provider Attestation/Addendum I have discussed and was present for the essential components of the history, physical examination, diagnosis, and treatment plan with the resident. I agree with the patient's care as documented by the resident and amended herein by me. Irwin Kebede DO. Although this document has been carefully reviewed, there may still be some phonetic and other typographical errors. These errors are purely grammatical due to imperfections in the software program and should not be construed in any way to compromise the substance of the patient's medical care during this visit.
--- NOTE | 2024-07-22 19:51 | ESPR_ITS ---
Documentation for date of: 07/22/24 Exam - Neurology Vital Signs Temp Pulse Resp BP Pulse Ox O2 Del Method 97.2 F 90 19 97/57 L 98 Room Air 07/22/24 16:00 07/22/24 16:00 07/22/24 16:00 07/22/24 16:00 07/22/24 16:00 07/22/24 12:00 Objective Labs 07/22/24 05:10 07/22/24 05:10 Labs: Laboratory Results - last 24 hr 07/22/24 05:10 WBC 9.3 RBC 3.51 L Hgb 8.0 L Hct 26.5 L MCV 76 L MCH 22.8 L MCHC 30.2 L RDW Std Deviation 51.5 H Plt Count 225 Neut % (Auto) 76 Lymph % (Auto) 12 [place] % (Auto) 8 Eos % (Auto) 3 Baso % (Auto) 0 Neut # (Auto) 7.0 Lymph # (Auto) 1.1 [place] # (Auto) 0.8 Eos # (Auto) 0.3 Baso # (Auto) 0.0 Immature Gran # (Auto) 0.04 H Absolute Nucleated RBC 0.00 Immature Gran % 0 Nucleated RBC % 0 Sodium 140 Potassium 3.0 L Chloride 106 Carbon Dioxide 24.9 Anion Gap 9 BUN 12 Creatinine 0.2 L Estim Creat Clear Calc 177.8 eGFR > 60 BUN/Creatinine Ratio 60 H Glucose 121 H D Calculated Osmolality 280 Calcium 7.1 L Corrected Calcium 8.6 Magnesium 1.7 Total Bilirubin 0.5 AST 21 ALT < 7 L Alkaline Phosphatase 113 D Total Protein 5.5 L Albumin 2.1 L Globulin 3.4 Albumin/Globulin Ratio 0.6 L ABG Interpretation ABG results: 07/20/24 12:54 VBG pH 7.63 VBG pCO2 25 L VBG pO2 194 H VBG Base Excess 6 H
[2024-07-22] MEDS: SERTRALINE HCL 25 MG TABLET PO (20:51)
[2024-07-22] MEDS: ATORVASTATIN CALCIUM 20 MG TABLET 80 MG PO (20:51)
--- NOTE | 2024-07-22 21:34 | PC.NURSE ---
SON, KUSUM, AT BEDSIDE, DOES NOT WANT WOUND CARE FOR TONIGHT. STATES THAT IT WAS RECENTLY CHANGED. ALL OTHER WOUND DRESSINGS, HE STATES GET CHANGED EVERY OTHER DAY.
[2024-07-23] VITALS (8 sets, daily range): BP systolic 107–111; BP diastolic 59–67; PULSE 97–108; RESP 17–100; TEMP 36.2–36.8; O2SAT 97–100; BMI 21.7
[2024-07-23] MEDS: DEXTROSE 50%-WATER INJ 50 ML SYRINGE 25 ML IV (05:37)
[2024-07-23] MEDS: metroNIDAZOLE/NS 500 MG IVPB 500 MG/100 ML BAG 200 MG IV ×2 (05:57→13:36)
[2024-07-23 06:00] LABS: Basophils % (Auto) 0 % (0-2.5); Eosinophils # (Auto) 0.1 Thou/mm3 (0.0-0.5); Eosinophils % (Auto) 1 % (0-10); Hematocrit 28.4 % (36.0-46.0); Immature Granulocytes % (Auto) 0 % (0-0); Immature Granulocytes Auto 0.04 Thou/mm3 (0.00-0.00); Lymphocytes # (Auto) 0.8 Thou/mm3 (1.0-4.8); Lymphocytes % (Auto) 8 % (10-50); Mean Corpuscular HGB Conc 30.3 g/dl (31.0-37.0); Mean Corpuscular Hemoglobin 22.8 pg (25.0-35.0); Mean Corpuscular Volume 75 fL (80-100); Monocytes # (Auto) 0.4 Thou/mm3 (0.0-0.8); Monocytes % (Auto) 4 % (0-12); Neutrophils # (Auto) 8.4 Thou/mm3 (1.8-7.7); Neutrophils % (Auto) 86 % (37-80); Nucleated Red Blood Cell % 0 /100 WBC (0); Platelet Count 211 Thou/mm3 (140-440); RDW Standard Deviation 50.7 fL (36.4-46.3); Red Blood Count 3.78 Miln/mm3 (4.00-5.20); White Blood Count 9.9 Thou/mm3 (3.6-11.0)
[2024-07-23 06:08] LABS: Hemoglobin 8.6 g/dL (12.0-16.0)
[2024-07-23 06:51] LABS: Alanine Aminotransferase < 7 U/L (10-49); Albumin, Serum 2.2 gm/dL (3.4-4.8); Albumin/Globulin Ratio 0.6 (1.2-2.2); Alkaline Phosphatase 120 U/L (46-116); Anion Gap 9 (7-16); Aspartate Amino Transferase 19 U/L (0-34); BUN/Creatinine Ratio 40 Ratio (12-20); Bilirubin,Total 0.5 mg/dL (0.3-1.2); Blood Urea Nitrogen 8 mg/dL (9-23); Calcium 7.1 mg/dL (8.3-10.6); Calcium (Corrected) 8.5 mg/dL (8.5-10.1); Carbon Dioxide 23.8 mMol/L (20.0-31.0); Chloride 104 mMol/L (98-107); Creatinine (Component) 0.2 mg/dL (0.6-1.3); Estimated Creatinine Clearance 177.8 mL/min (>60); Globulin 3.5 gm/dL (2.3-3.5); Glucose 77 mg/dL (74-106); Magnesium 1.5 mg/dL (1.6-2.6); Osmolality,Calculated 271 (275-295); Potassium 3.3 mMol/L (3.4-5.1); Sodium 137 mMol/L (136-145); Total Protein 5.7 gm/dL (5.7-8.2); eGFR > 60 See Note
--- NOTE | 2024-07-23 08:02 | EKG_ITS ---
[facility] Test Date: 2024-07-23 Pat Name: MARILYN PATE [facility] Outside Machinist: DANIELLE : 1945 Requested By: Sandeep Luna Order Number: [id number] Reading MD: Sandeep Luna Measurements Intervals [place] Rate: 110 P: 73 VT: 130 QRS: 38 QRSD: 93 T: 69 QT: 360 QTc: 488 Interpretive Statements SINUS TACHYCARDIA LOW QRS VOLTAGE IN EXTREMITY LEADS ANTERIOR MYOCARDIAL INFARCTION , OF INDETERMINATE AGE PROBABLE INFERIOR MYOCARDIAL INFARCTION , OF INDETERMINATE AGE Compared to ECG 07/20/2024 12:45:44 Low QRS voltage now present Myocardial infarct finding now present /[id number]/S0/[id number]
[2024-07-23] MEDS: ENOXAPARIN SOD INJ 40 MG/0.4 ML SYRINGE SC (09:14)
[2024-07-23] MEDS: cefTRIAXone/D5w 1gm IV premix 1 GM/50 ML BAG IV (09:15)
[2024-07-23] MEDS: Magnesium Sulfate 4 GM Ivpb 4 GM/50 ML BAG IV (09:15)
[2024-07-23] MEDS: POTASSIUM CHL 10 mEq IVPB 10 MEQ/100 ML BAG 75 MEQ IV ×6 (09:16→16:36)
[2024-07-23] MEDS: PANTOPRAZOLE 40 MG TABLET PO (09:38)
[2024-07-23] MEDS: ASPIRIN 81 MG CHEW PO (09:38)
[2024-07-23] MEDS: THIAMINE 100 MG TABLET PO (09:39)
[2024-07-23] MEDS: CLOPIDOGREL BISULFATE 75 MG TABLET PO (09:39)
[2024-07-23] MEDS: MULTIVITAMINS TABLET 1 TAB PO (09:39)
--- NOTE | 2024-07-23 10:19 | PD.RESDS ---
Planned Discharge Date 07/23/24 DS: Providers Provider Date of admission: 07/20/24 17:27 Primary care physician: AMINATA Stapleton Admitting Provider: Neto Kebede DO Attending Provider on Admission: Neto Kebede DO Consults: 07/20/24 18:06 Consult to Neurology / Tele-Neurology Routine Comment: Consulting Provider: Ron Guidry Referral Speech Therapy Routine Comment: 07/20/24 18:13 Referral Registered Dietitian Routine Comment: anorexia 07/20/24 21:00 Referral Wound Care Stat Comment: new pt, has large sacrum and a rt heel wound 07/21/24 14:25 Referral Physical Therapy Routine Comment: Physician Instructions: Instructions: Stroke 07/21/24 17:10 Referral OP Wound Healing Dept Routine Comment: Instructions: Sacral stage 4. Right thumb, heel and great toe unstageable. Left elbow unstageable. Attending Provider on DC: Neto Kebede DO Discharging Provider: Sandeep Luna MD DS: Diagnosis Problem List Completed Was Problem List Reviewed/Reconciled?: Yes Hospital Course Hospital Course Hospital course: Kallie is a 78 y/o female with PMHx of previous CVAs (bedbound, R sided deficits), HTN, HLD, possible atrial myxoma, chronic indewlling bradshaw, chronic UTIs, ectopic who presented with left-sided facial droop and generalized weakness is admitted for stroke workup. 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 Repeat echocardiogram showed stable atrial myxoma 1-2 cm unchanged from ROBI done on 06/22/2023. Neurology, physical therapy and speech evaluation were all done. Patient was recommended to be discharged to hospice as per PT recs, however family wishes for patient to go home with home health. Speech therapy recommended pur?ed diet and neurology recommended dual antiplatelet therapy with aspirin and Plavix for 21 days followed by aspirin only. For her possible aspiration pneumonia patient was treated with ceftriaxone 1 g IV daily and metronidazole 500 Mg IV every 8 hourly from 07/20 - 07/23. Chest x-ray showed consolidation at the left base, consider aspiration pneumonia. Due to her history of old CVAs with residual deficits and this acute aspiration risk is high. Patient will be discharged on a 5-day course of Augmentin. Patient's labs are now returning to her baseline, patient is now clinically stable and fit for discharge to home with home health. Discharge diagnoses: 1. 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 History of previous strokes with residual right-sided deficits 3. Chronically bedbound 4. History of atrial myxoma 5. Likely aspiration pneumonia 6. Sepsis ruled out 7. Hypokalemia?resolving 8. Chronic bacteriuria secondary to indwelling Bradshaw catheter 9. Prolonged QTc 10. Primary hypertension 11. Hyperlipidemia 12. Decubitus ulcer 13. Microcytic anemia 14. History of depression. Discharge plan: ? You have been started on an antibiotic Augmentin. Take one tablet twice a day for the next five days to complete the course. ? Continue taking aspirin daily. ? You are been started on another medication to prevent strokes, clopidogrel. Take 1 tablets/day for the next 18 days, then stop. ? Avoid taking any NSAIDs, including Aleve, ibuprofen and diclofenac. These may increase your risk of bleeding. - We have started you on Iron supplements for your anemia. Take one dose every other day ? We have increased your atorvastatin dose to 80 mg at night. ? We have put a stopped your antibiotic nitrofurantoin. Do not take anymore. ? Continue the rest of your home medication as before. - Please follow a pureed diet to prevent any choking. - Please continue to follow up with the wound clinic for the ulcer on your back. ? Follow-up with neurology, Dr. Guidry within 2 weeks of discharge. - Follow up with your primary doctor for your anemia and your heart myxoma. - Follow up with your primary care physician within 1 week of discharge. If you do not have a primary care physician, please follow up with the [facility] Residents clinic ([phone]) ? If you experience any new, worsening or persistent symptoms either call your primary doctor, or dial 911 or present to the emergency department. We are grateful to be able to participate in Ms. Dewitt's care. We wish her the best. Plan of care discussed with Attending Dr. Delio Luna MD PGY 1 Disclaimer: This note was dictated by speech recognition. Minor errors in tongue and groove machine operator may be present due to voice recognition software. Time Spent with Patient Time attestation: Total time spent providing and/or coordinating discharge services: Time spent: Greater than 30 minutes (43) Home Health Home Health Referral Orders: 07/23/24 10:17 Home Health Referral Routine Reason For Exam: debility Home-Bound The patient must either because of illness or injury, need the aid of supportive devices such as crutches, canes, wheelchairs, and walkers; the use of special transportation; or the assistance of another person in order to leave their place of residence; OR have a condition such that leaving his or her home is medically contraindicated. In addition, the patient also meets the following criteria: patient is normally unable to leave the home and leaving home requires considerable taxing effort. Addendum to Home Health Certification Practitioner's Certification: I certify that the patient has been under my care in the hospital and the care of attending physician (see below). We had a ghdg-eg-[id number] encounter on (see date below). My clinical findings indicate that the patient is home bound per the above criteria and the Home Health Services noted in these orders are medically necessary. The primary reason for the [id number] encounter is related to the fact that the patient requires home health services. Date Certifying Atkz-wh-Ihuy Physician Encounter: 07/20/24 Physician's Name who will Assume Oversight for Services: Marci eFrnandes Physician's Phone No.who will Assume Oversight for Service: CASING WRINGER OPERATOR - Community Resources: No PT to Evaluate: Yes PT to evaluate and provide a treatmnet plan to increase patient's mobility and strength. Wound Care: No IV Therapy: No Discontinue PICC Line Once Treatment Complete: No RN Safety Evaluation: Yes RN to evaluate and create a plan of care that will produce positive outcomes. Palliative Treatment: No Palliative treatment and evaluate the need for hospice. Home Health Aide - Personal Care: No Home Health Aide to assist with any ADL's. Exam Vital Signs Temp Pulse Resp BP Pulse Ox O2 Del Method 97.8 F 104 H 20 108/66 100 Room Air 07/23/24 08:00 07/23/24 08:00 07/23/24 08:00 07/23/24 08:00 07/23/24 08:00 05/24/25 08:00 Narrative Exam General: AAOx2, anorexic, weak, frail, elderly woman, appears to be lethargic HEENT: Dry mucous membranes, conjunctiva clear, limited exam on extraocular movements as patient is unable to cooperate PERRLA, sternal and clavicle bossing Cardiovascular: S1-S2, prominent heart sounds indicative of systolic murmur, RRR Pulmonary: CTAB bilat no cough, no wheezing GI: No tenderness to light or deep palpitation, no guarding, rigidity, rebound tenderness or distension : Bradshaw chronic Extremities: No presence of trace or pitting edema in lower extremities bilaterally, dorsalis pedis pulses +2 bilaterally, some venous stasis in lower extremities, prominence 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 You have been started on an antibiotic Augmentin. Take one tablet twice a day for the next five days to complete the course. ? Continue taking aspirin daily. ? You are been started on another medication to prevent strokes, clopidogrel. Take 1 tablets/day for the next 18 days, then stop. ? Avoid taking any NSAIDs, including Aleve, ibuprofen and diclofenac. These may increase your risk of bleeding. - We have started you on Iron supplements for your anemia. Take one dose every other day ? We have increased your atorvastatin dose to 80 mg at night. ? We have put a stopped your antibiotic nitrofurantoin. Do not take anymore. ? Continue the rest of your home medication as before. - Please follow a pureed diet to prevent any choking. - Please continue to follow up with the wound clinic for the ulcer on your back. ? Follow-up with neurology, Dr. Guidry within 2 weeks of discharge. - Follow up with your primary doctor for your anemia and your heart myxoma. - Follow up with your primary care physician within 1 week of discharge. If you do not have a primary care physician, please follow up with the [facility] Residents clinic ([phone]) ? If you experience any new, worsening or persistent symptoms either call your primary doctor, or dial 911 or present to the emergency department. Prescriptions/Referrals Prescriptions/Med Rec: New atorvastatin 80 mg tablet 80 mg PO QPM 14 Days Qty: 14 0RF clopidogrel 75 mg Tablet 75 mg PO QDAY 18 Days Qty: 18 0RF amoxicillin-pot clavulanate 875-125 mg tablet 1 tab PO BID 5 Days Qty: 10 0RF ferrous sulfate 300 mg (60 mg iron)/5 mL liquid 300 mg PO Q OTHER DAY 14 Days Qty: 120 0RF Continued venlafaxine 75 mg capsule,extended release 24hr 75 mg PO DAILY aspirin 81 mg tablet,delayed release (DR/EC) 81 mg PO DAILY sertraline 25 mg tablet 25 mg PO QDAY Discontinued atorvastatin 40 mg tablet 40 mg PO HS Patient Comments: TAKE ONE TABLET BY MOUTH AT BEDTIME FOR CHOLESTEROL nitrofurantoin 100 mg capsule 100 mg PO BID Patient Comments: x 7 days, had two days left Rx Instructions: must administer with a meal/food Referrals: Marci Fernandes FNP [Primary Care Provider] - Ron Guidry MD [Physician] - Patient/Caregiver Discharge Instructions Discharge Activity: as per physical therapy Education Materials: Stroke: Resources and Support, Stroke: Tips for Swallowing, Preventing Pneumonia, Stroke Self Care After, ED Stroke, Completed Print Language: Bruneian Stand Alone Forms: Jo Award Info., Patient Portal Info Letter Discharge Order Discharge Orders: Discharge (Routine); Ordered 07/23/24 Ordered By: Sandeep Luna Quality Discharge Quality Measures VTE prophylaxis Attestestation MD Attestation I have discussed and was present for the essential components of the discharge history, physical examination, diagnosis, and discharge treatment plan with the resident. I agree with the patient's discharge care as documented by the resident and amended herein by me. Irwin Kebede DO. The patient understood all discharge instructions, all questions were answered satisfactorily. The patient was instructed to return to the Emergency Department is symptoms worsened or persisted. Patient was stable, afebrile tolerating p.o. intake at time of discharge home with home health for physical therapy. Patient presently prescribed aspirin and Plavix for continued stroke prophylaxis, also prescribed with a short course of Augmentin for aspiration pneumonia. See resident note above for additional details. Although this document has been carefully reviewed, there may still be some phonetic and other typographical errors. These errors are purely grammatical due to imperfections in the software program and should not be construed in any way to compromise the substance of the patient's medical care during this visit.
--- NOTE | 2024-07-23 16:26 | PC.SS ---
NICKY obtained, [facility] unable to authorize trip. Transport documents submitted via [employer] to [facility]. - [facility] scheduled transport for 1899. CHELE Warren and patient?s son Neel informed of transport time. SS informed by FRANKIE Negron, patient is needing gurney transportation for discharge.
--- NOTE | 2024-07-23 18:54 | PC.CM ---
Patient has been accepted by [facility]. Start of care date is set for 07/26.
--- NOTE | 2024-07-24 12:53 | PC.CC ---
Per Ernestine, pt is on service with [facility]. Referral sent to [facility], waiting for response.
--- NOTE | 2024-07-26 14:56 | PC.CC ---
There is no response from [facility] on HH referral. I called [facility], spoke to Rose. She stated pt is open with them. She accepted the pt on [employer] and I booked. Pending resume of care date.
--- NOTE | 2024-07-27 10:39 | PC.CC ---
Addendum entered by Carlo Cortes RN 07/27/24 10:41: Per Rose, DANIEL is 07/28/2024 Original Note: Spoke to Rose w/ [facility],, she stated DANIEL is still pending.
== END 2024-07-23 19:20 | disposition home health service (06) | DRG 64 ==
LOC: SERX 17:11 → SERHOLD 17:48 → S2NX 07-21 06:49 → SERHOLD 07-21 08:32
PROVIDERS: Admitting Provider Student in an Organized Health Care Education/Training Program; Emergency Provider Emergency Medicine; PCP Nurse Practitioner; Visit Provider Student in an Organized Health Care Education/Training Program
DX: I63.89 Other cerebral infarction (principal); J69.0 Pneumonitis due to inhalation of food and vomit; L89.154 Pressure ulcer of sacral region, stage 4; N39.0 Urinary tract infection, site not specified; I69.351 Hemiplegia and hemiparesis following cerebral infarction affecting right dominant side; G81.94 Hemiplegia, unspecified affecting left nondominant side; R29.810 Facial weakness; E78.5 Hyperlipidemia, unspecified; M06.9 Rheumatoid arthritis, unspecified; F32.A Depression, unspecified; D50.9 Iron deficiency anemia, unspecified; I10 Essential (primary) hypertension; Z87.891 Personal history of nicotine dependence; Z74.01 Bed confinement status; R29.719 NIHSS score 19; E87.5 Hyperkalemia; R13.10 Dysphagia, unspecified; E78.00 Pure hypercholesterolemia, unspecified; E87.6 Hypokalemia; G93.89 Other specified disorders of brain; I66.02 Occlusion and stenosis of left middle cerebral artery; I66.22 Occlusion and stenosis of left posterior cerebral artery; Z66 Do not resuscitate; Z79.02 Long term (current) use of antithrombotics/antiplatelets; Z79.82 Long term (current) use of aspirin; Z79.899 Other long term (current) drug therapy; Z87.440 Personal history of urinary (tract) infections
CPT/HCPCS: 36415; 70450; 70496; 70498; 70544; 70551; 71045; 80053; 80307; 81001; 82728; 82803; 83036; 83540; 83550; 83605; 83735; 83880; 84100; 84443; 84484; 84703; 85025; 85610; 85730; 87040; 87077; 87086; 87186; 87811; 92526; 92610; 93005; 93306; 93880; 99291; A4649; J0456; J0696; J1650; J2060; J2470; J3475; J3480; J3490; J7030; J7050; J7070; Q9967; A9270; J1836